=== PATIENT | female | born 1950 | race Caucasian/White ===

== ENCOUNTER 2024-08-07 07:29 | Observation (INO) ==
--- NOTE | 2024-08-07 07:49 | Emergency Department Note ---
Impression & Plan Stroke-like symptom, Carotid arterial disease ED Provider Note NAME: LATIA ASH AGE: 74 SEX: F : 1950 ARRIVES VIA: Walk-In INFORMANT: Patient, ED PROVIDER(S): Pedro Meyer DO CHIEF COMPLAINT: Strokelike symptoms HPI: The patient is a 74-year-old female who recently moved to our area from [place] who presented to the emergency department at the request of her retinal specialist. The patient had a dilated retinal exam this week. She was noted to have an area on her retina that could be consistent with an ischemic stroke. She was told to go to the emergency department for further workup. The patient did bring a list of orders that her eye doctor as requested. The patient denies having any chest pain or difficulty breathing. She denies any difficulty ambulating. She did not notice any specific eye symptoms. She has no history of stroke but does have a history of bicuspid aortic valve. ROS: See above HPI for pertinent positives & negatives. A total of 10 systems reviewed and were otherwise negative. PAST MEDICAL HISTORY: See Below PAST SURGICAL HISTORY: See Below FAMILY HISTORY: See Below SOCIAL HISTORY: See Below HOME MEDICATIONS: See Below ALLERGIES: See Below VITALS: See Below PHYSICAL EXAMINATION: GENERAL: Patient is awake alert in no acute distress patient is resting comfortably and showing no signs of anxiety EYES: The conjunctivae are clear. The pupils are round and reactive. EARS, NOSE, MOUTH AND THROAT: The nose is without any evidence of any deformity. NECK: The neck is nontender and supple. RESPIRATORY: Normal respiratory effort is noted there is no evidence of wheezing rhonchi or rales CARDIOVASCULAR: Regular rate and rhythm was noted to auscultation. Systolic murmur suggested. GASTROINTESTINAL: The abdomen is soft. Abdomen is nontender. MUSCULOSKELETAL/EXTREMITIES: There is no evidence of gross deformity full range of motion is noted in the hips and shoulders. SKIN: There is no obvious evidence of any rash. There are no petechiae, pallor or cyanosis noted. NEUROLOGIC: Patient is awake alert and oriented x3 MEDICAL DECISION MAKING: The patient is a 74-year-old female who presented to the emergency department for an evaluation of strokelike symptoms. The patient had no specific symptoms but had been evaluated by an board certified arts therapist recently. She was told that she had signs of a possible ischemic stroke on retinal exam. She was told to go to the emergency department for further evaluation. The patient does not have a family doctor locally. She recently moved to the area. The patient had the usual stroke workup done in the emergency department. She was found to have carotid artery disease on the right which I do feel likely explains the patient's findings on retinal exam. I discussed the patient's laboratory and radiographic studies with her. Given her findings I do feel that she would be a better candidate for inpatient evaluation. She may need to be started on antiplatelet medications. I will defer this to the hospitalist group. I discussed the patient's condition with the on-call [facility] hospitalist. They have agreed to evaluate the patient in the emergency department. Triage Nursing notes reviewed. Prior medical records reviewed Vital Signs: reviewed and remarkable for elevated blood pressure. Differential diagnosis: Conjunctivitis, trauma, corneal abrasion, hyphema, glaucoma, iritis, corneal ulcer, dendrite, CRAO, CRVO, vitreous detachment, retinal detachment, as well as other pathologies. ER treatment provided: See below Diagnostics interpreted by me: ECG: EKG was obtained. My interpretation is sinus bradycardia 59 bpm. There was no ectopy. There is no acute ST segment abnormalities noted. No previous tracings available. Cardiac Monitoring: An order was placed for continuous cardiac monitoring. The monitor shows a rate of 59 bpm with sinus bradycardia. Laboratory studies: As stated above and show below. Imaging studies: See below. Radiographic imaging was reviewed by myself Consultation(s): I discussed this case with Dr. Hernandez who is on-call for the [facility] hospitalist group Past Med/Surg History Problem List (Updated 08/07/24 @ 11:00 by Con Dobson PA-C) Diabetes Carotid artery stenosis Carotid arterial disease (Acute) Stroke-like symptom (Acute) Medical History (Updated 08/07/24 @ 11:00 by Con Dobson PA-C) Bicuspid aortic valve Social History Smoking Status: Never smoker Feels Safe at Home: Yes Allergies Allergies Allergy/AdvReac Type Severity Reaction Status Date / Time Sulfa (Sulfonamide Allergy Unknown Verified 08/07/24 10:08 Antibiotics) ibuprofen AdvReac Unknown Verified 08/07/24 10:08 Home Meds Home Medications Medication Instructions Recorded Confirmed aspirin 81 mg tablet,delayed 81 mg PO DAILY 08/07/24 08/07/24 release hydrochlorothiazide 12.5 mg capsule 12.5 mg PO DAILY 08/07/24 08/07/24 levothyroxine 137 mcg tablet 137 mcg PO DAILY 08/07/24 08/07/24 (Synthroid) losartan 100 mg tablet 100 mg PO DAILY 08/07/24 08/07/24 Results & Data (ED) Vital Signs Vital Signs - 24 hr 08/07/24 07:37 08/07/24 07:37 08/07/24 08:21 Temperature 36.9 C Temperature Source Oral Pulse Rate 67 64 Pulse Rate [Apical] Pulse Rate from SpO2 Sensor Pulse Rhythm Regular Pulse Strength Normal Respiratory Rate 18 Respiratory Effort / Characteristics Non-Labored Respiratory Depth Normal Respiratory Pattern Regular Blood Pressure 157/83 H Blood Pressure [Left Arm] Blood Pressure Mean 107 Blood Pressure Mean [Left Arm] Pulse Oximetry 97 Oxygen Delivery Method Room Air Room Air Sepsis Recent Fever Within 48 Hours No Sepsis New/Unexplained Change in Mental Status No Sepsis Action Taken by Nursing No Action Required 08/07/24 08:30 08/07/24 08:33 08/07/24 08:39 Temperature Temperature Source Pulse Rate 56 L 53 L Pulse Rate [Apical] Pulse Rate from SpO2 Sensor 56 L 53 L Pulse Rhythm Pulse Strength Respiratory Rate 16 13 Respiratory Effort / Characteristics Respiratory Depth Respiratory Pattern Blood Pressure 144/69 H Blood Pressure [Left Arm] Blood Pressure Mean 113 Blood Pressure Mean [Left Arm] Pulse Oximetry 95 94 Oxygen Delivery Method Room Air Sepsis Recent Fever Within 48 Hours Sepsis New/Unexplained Change in Mental Status Sepsis Action Taken by Nursing 08/07/24 08:45 08/07/24 08:57 08/07/24 09:00 Temperature Temperature Source Pulse Rate 55 L Pulse Rate [Apical] Pulse Rate from SpO2 Sensor 56 L Pulse Rhythm Pulse Strength Respiratory Rate 12 Respiratory Effort / Characteristics Respiratory Depth Respiratory Pattern Blood Pressure 160/79 H 160/73 H Blood Pressure [Left Arm] Blood Pressure Mean 136 128 Blood Pressure Mean [Left Arm] Pulse Oximetry 95 Oxygen Delivery Method Sepsis Recent Fever Within 48 Hours Sepsis New/Unexplained Change in Mental Status Sepsis Action Taken by Nursing 08/07/24 09:12 08/07/24 09:15 08/07/24 09:15 Temperature Temperature Source Pulse Rate 55 L 56 L Pulse Rate [Apical] Pulse Rate from SpO2 Sensor 55 L 54 L Pulse Rhythm Pulse Strength Respiratory Rate 13 21 Respiratory Effort / Characteristics Respiratory Depth Respiratory Pattern Blood Pressure 164/80 H Blood Pressure [Left Arm] Blood Pressure Mean 100 Blood Pressure Mean [Left Arm] Pulse Oximetry 93 97 Oxygen Delivery Method Sepsis Recent Fever Within 48 Hours Sepsis New/Unexplained Change in Mental Status Sepsis Action Taken by Nursing 08/07/24 09:30 08/07/24 09:42 08/07/24 09:45 Temperature Temperature Source Pulse Rate 49 L 51 L Pulse Rate [Apical] Pulse Rate from SpO2 Sensor 51 L 50 L Pulse Rhythm Pulse Strength Respiratory Rate 15 19 Respiratory Effort / Characteristics Respiratory Depth Respiratory Pattern Blood Pressure 166/81 H Blood Pressure [Left Arm] Blood Pressure Mean 136 Blood Pressure Mean [Left Arm] Pulse Oximetry 98 98 Oxygen Delivery Method Sepsis Recent Fever Within 48 Hours Sepsis New/Unexplained Change in Mental Status Sepsis Action Taken by Nursing 08/07/24 09:45 08/07/24 11:00 08/07/24 12:00 Temperature Temperature Source Pulse Rate Pulse Rate [Apical] 58 L 55 L Pulse Rate from SpO2 Sensor Pulse Rhythm Pulse Strength Respiratory Rate 18 18 Respiratory Effort / Characteristics Non-Labored Spontaneous Non-Labored Spontaneous Respiratory Depth Normal Normal Respiratory Pattern Regular Regular Blood Pressure 190/75 H Blood Pressure [Left Arm] 151/79 H 207/78 H Blood Pressure Mean 95 Blood Pressure Mean [Left Arm] 103 121 Pulse Oximetry 97 94 Oxygen Delivery Method Room Air Room Air Sepsis Recent Fever Within 48 Hours Sepsis New/Unexplained Change in Mental Status Sepsis Action Taken by Nursing 08/07/24 12:17 08/07/24 12:19 08/07/24 13:00 Temperature Temperature Source Pulse Rate 56 L Pulse Rate [Apical] 53 L 59 L Pulse Rate from SpO2 Sensor Pulse Rhythm Pulse Strength Respiratory Rate 16 18 Respiratory Effort / Characteristics Non-Labored Spontaneous Respiratory Depth Normal Respiratory Pattern Regular Blood Pressure Blood Pressure [Left Arm] 207/78 H 174/75 H Blood Pressure Mean Blood Pressure Mean [Left Arm] 121 108 Pulse Oximetry 98 96 Oxygen Delivery Method Room Air Room Air Sepsis Recent Fever Within 48 Hours Sepsis New/Unexplained Change in Mental Status Sepsis Action Taken by Retirement Medications Current Medication List: was personally reviewed by me Laboratory Data Attestation: I reviewed the patient's lab results. 08/07/24 07:51 08/07/24 07:51 Lab Results 08/07/24 08/07/24 Range/Units 07:51 10:10 WBC 5.71 (4.8-10.8) K/ul RBC 4.63 (4.20-5.40) M/uL Hgb 13.5 (12.0-16.0) g/dl Hct 41.0 (37.0-47.0) % MCV 88.6 (80.0-100.0) fL MCH 29.2 (25.0-34.0) pg MCHC 32.9 (32.0-36.0) g/dL RDW Std Deviation 42.1 (36.4-46.3) fL RDW Coeff of [place] 13.0 (11.5-14.5) % Plt Count 216 (130-400) K/uL MPV 11.5 (9.4-12.4) fL Immature Gran % (Auto) 0.4 % Neut % (Auto) 71.4 % Lymph % (Auto) 19.8 % [place] % (Auto) 6.0 % Eos % (Auto) 1.9 % Baso % (Auto) 0.5 % Neut # (Auto) 4.08 (1.40-6.50) K/uL Lymph # (Auto) 1.13 L (1.20-3.40) K/uL [place] # (Auto) 0.34 (0.11-0.59) K/uL Eos # (Auto) 0.11 (0.00-0.50) K/uL Baso # (Auto) 0.03 (0.00-0.20) K/uL Immature Gran # (Auto) 0.02 (0.01-0.20) K/uL ESR 27 (0-30) mm/hr PT 10.4 (9.0-12.0) Seconds INR 1.0 (0.9-1.1) APTT 26 (21-31) Seconds PTT Ratio 1.0 Sodium 141 (136-145) mmol/L Potassium 3.8 (3.5-5.1) mmol/L Chloride 106 (98-107) mmol/L Carbon Dioxide 26 (21-32) mmol/L Anion Gap 9 (3-11) BUN 16 (6-23) mg/dl Creatinine 0.60 (0.6-1.2) mg/dl Est Cr Clr Drug Dosing 98.2 ml/min eGFR 94.72 BUN/Creatinine Ratio 26.7 H (10-20) Glucose 131 H (70-99(Fasting)) mg/dl Calcium 9.3 (8.6-10.3) mg/dl Magnesium 1.8 (1.7-2.4) mg/dl Total Bilirubin 0.5 (0.2-1.0) mg/dl AST 15 (13-39) U/L ALT 14 (7-52) U/L Alkaline Phosphatase 93 (34-104) U/L Troponin I High Sens 4.3 (0-14) pg/ml C-Reactive Protein < 0.50 (0-0.5) mg/dl Total Protein 6.9 (6.0-8.3) gm/dl Albumin 3.9 (3.4-5.0) gm/dl Globulin 3.0 (2.5-4.0) gm/dl Albumin/Globulin Ratio 1.3 (0.9-2) Urine Color Yellow Urine Appearance Clear (Clear) Urine pH 7.0 (4.5-7.5) Ur Specific [place] 1.043 H (1.000-1.030) Urine Protein Negative (Negative) Urine Glucose (UA) Negative (Negative) Urine Ketones Negative (Negative) Urine Blood Negative (Negative) Urine Nitrite Positive A (Negative) Urine Bilirubin Negative (Negative) Urine Urobilinogen Negative (Negative) Ur Leukocyte Esterase 1+ H (Negative) Urine WBC (Auto) 11-20 H (0-5) /hpf Urine RBC (Auto) 3-5 H (0-2) /hpf U Hyaline Cast (Auto) 0-2 (0-2) /lpf U Epithel Cells (Auto) 0-2 (0-2) /hpf Urine Bacteria (Auto) 4+ H (None Seen) Administered Medications Discontinued Medications Amlodipine Besylate (Amlodipine Besylate 5 Mg Tab) 5 mg PO NOW ONE Stop: 08/07/24 11:23 Last Admin: 08/07/24 12:19 Dose: 5 mg Documented By: AUGIE Atorvastatin Calcium (Atorvastatin 40 Mg Tab) 40 mg PO NOW STA Stop: 08/07/24 11:19 Last Admin: 08/07/24 12:25 Dose: Not Given Documented By: EVE Clopidogrel Bisulfate (Clopidogrel Bisulfate 300 Mg Tab) 300 mg PO NOW STA Stop: 08/07/24 11:28 Last Admin: 08/07/24 12:19 Dose: 300 mg Documented By: KEH Ioversol (Optiray 320 125ml) 120 ml IV ONCE ONE Stop: 08/07/24 08:02 Last Admin: 08/07/24 08:02 Dose: 120 ml Documented By: AYDE Imaging Data Attestation: I personally reviewed and interpreted this imaging study as follows: My Impression: 1 view chest x-ray was obtained emergency department. My interpretation is no free air or definite infiltrate, final report below. CT the brain was obtained in the emergency department. My interpretation is no intracranial hemorrhage or mass effect, final report below Radiologist's Impression: Chest X-Ray 08/07/24 07:46 EXAM: XR chest 1V portable CLINICAL HISTORY: Neuro deficit, acute stroke suspected TECHNIQUE: An X-ray image of the chest is obtained in AP projection. COMPARISON: No prior studies are available for comparison. FINDINGS: Pulmonary Parenchyma: Bilateral accentuated interstitial lung markings suggest chronic lung changes. No evidence of consolidation, collapse, or focal opacities. No pulmonary nodules are identified. No evidence of pleural effusion or pleural thickening. Heart and Mediastinum: Heart size and shape are normal. No mediastinal widening or masses. No hilar or mediastinal lymphadenopathy. Bony Thorax: Bony thorax appears intact without fractures or deformities. Soft Tissues: Soft tissues overlying the chest wall are unremarkable. IMPRESSION: 1. Bilateral increase interstitial lung markings with right middle lung zone atlectatic band suggesting chronic lung changes. 2. No acute cardiopulmonary abnormalities are identified. Electronically signed by Kori Abdi 08-07-2024 08:[address] 08/07/24 07:46 CT OF THE HEAD WITHOUT CONTRAST CLINICAL HISTORY: neuro deficit, acute stroke suspected COMPARISON STUDY: No previous studies for comparison. TECHNIQUE: Helical axial images of the head were obtained without IV contrast. Automated exposure control was utilized for the study. A dose lowering technique was utilized adhering to the principles of ALARA. FINDINGS: No acute intracranial hemorrhage, midline shift or mass effect is present. The ventricular system is unremarkable. The basal cisterns are patent. No extra-axial collections are present. There are no findings to suggest acute dural sinus thrombosis or acute territorial infarct. No significant calvarial abnormalities are present. Visualized portions of the sinuses and mastoid air cells are clear. Postoperative findings within the left globe are present. IMPRESSION: No acute intracranial findings. ACT 112: Negative or not required by law. Electronically signed by: Stiven Oliver M.D. 08/07/2024 8:13 AM Head CTA 08/07/24 07:46 CTA ANGIOGRAPHY OF THE HEAD CLINICAL HISTORY: neuro deficit, acute stroke suspected COMPARISON STUDY: No previous studies for comparison. TECHNIQUE: Helical axial images of the head were obtained following uneventful intravenous administration of 120 cc of Optiray. Sagittal and coronal reconstructions were viewed as well as maximal intensity projections on an independent 3-D workstation. Automated exposure control was utilized for the study. A dose lowering technique was utilized adhering to the principles of ALARA. FINDINGS: Please note that the head CT will be reported separately. 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 The bilateral M1, M2, A1 and A2 segments are patent. There is no intracranial aneurysm. There is moderate calcified plaque within bilateral cavernous carotids without severe stenosis. persistence of the right posterior cerebral artery is noted. Posterior circulation is intact. Right vertebral artery is dominant. IMPRESSION: No large vessel occlusion. No intracranial aneurysm. ACT 112: Negative or not required by law. Electronically signed by: Stiven Oliver M.D. 08/07/2024 8:24 AM Neck CTA 08/07/24 07:46 CT ANGIOGRAPHY OF THE NECK WITH CONTRAST CLINICAL HISTORY: neuro deficit, acute stroke suspected COMPARISON STUDY: No previous studies for comparison. Technique: CT angiography of the carotid and vertebral arteries was obtained using Optiray and 3D reconstruction on an independent workstation. NASCET criteria was utilized. Automated exposure control was utilized for the study. A dose lowering technique was utilized adhering to the principles of ALARA. CT DOSE: 995.91 mGy.cm Findings: Visualized portions of the lung apices are unremarkable. There is no cervical lymphadenopathy. There are no cervical spine fractures. The right vertebral artery is dominant and patent. There is moderate stenosis at the origin of the left vertebral artery. There is moderate plaque within the left subclavian artery without stenosis. There is extensive calcified and noncalcified plaque within the proximal right internal carotid artery which results in severe stenosis at the origin of the right internal carotid artery. Vessel measures 1.3 mm at site of narrowing and 5 mm distally. There is mild plaque within the left carotid bifurcation without stenosis. IMPRESSION: 1. Severe (80%) stenosis of the proximal right internal carotid artery due to extensive calcified and noncalcified atherosclerotic plaque. 2. No stenosis within the cervical left internal carotid artery. 3. Dominant, patent right vertebral artery. Moderate stenosis at the origin of the left vertebral artery. ACT 112: Negative or not required by law. Electronically signed by: Stiven Oliver M.D. 08/07/2024 8:19 AM Brain MRI 08/07/24 10:01 MRI OF THE BRAIN WITHOUT CONTRAST CLINICAL HISTORY: Abnormal right eye exam. Evaluate for stroke. COMPARISON STUDY: Head CT and CTA of the head performed earlier today. TECHNIQUE: Utilizing a 1.5 Mitra magnet and dedicated coil, multiplanar, multiecho imaging of the brain was performed without IV contrast. FINDINGS: There are no foci of restricted diffusion to suggest acute infarct. No acute intracranial hemorrhage, midline shift or mass effect is present. Ventricular system is unremarkable. Basal cisterns are patent. Flow-voids for the major intracranial vessels are present. No intracranial masses identified on unenhanced exam. Multiple white matter T2 hyperintense foci suggest small vessel disease. There are no calvarial lesions. There is no evidence for sinusitis. There is no mastoid fluid. IMPRESSION: 1. No acute intracranial findings. No evidence for acute infarct. 2. White matter T2 hyperintense foci suggestive of moderate small vessel disease. ACT 112: Negative or not required by law. Electronically signed by: Stiven Oliver M.D. 08/07/2024 12:05 PM Discharge Plan Visit Data Chief Complaint: Stroke/CVA Symptoms Stated Complaint: ABNORMAL EYE SYMP, REF BY DOC FOR STROKE ED Provider: Pedro Meyer Discharge Problem: Stroke-like symptom, Carotid arterial disease Patient Disposition: Being Evaluated by Hospitalist Forms Stand Alone Forms: My [facility] [employer] Prescriptions Prescriptions: No Action levothyroxine [Synthroid] 137 mcg tablet 137 mcg PO DAILY hydrochlorothiazide 12.5 mg capsule 12.5 mg PO DAILY losartan 100 mg tablet 100 mg PO DAILY aspirin [Aspir-81] 81 mg Tablet,Delayed Release (Dr/Ec) 81 mg PO DAILY Referrals Referrals: PCP,NO [Primary Care Provider] - Discharge Problem: Carotid arterial disease Qualifiers: Carotid artery disease type: unspecified Laterality: right Qualified Code(s): I 77.9 - Disorder of arteries and arterioles, unspecified
[2024-08-07] MEDS: OPTIRAY 320 125ml IV ONE (08:02)
[2024-08-07 08:11] LABS: Basophils # (auto) 0.03 K/uL (0.00-0.20); Basophils % (auto) 0.5 %; Eosinophils # (auto) 0.11 K/uL (0.00-0.50); Eosinophils % (auto) 1.9 %; Hemoglobin 13.5 g/dl (12.0-16.0); Immature Granulocytes # (auto) 0.02 K/uL (0.01-0.20); Immature Granulocytes % (auto) 0.4 %; Lymphocytes # (auto) 1.13 K/uL (1.20-3.40); Lymphocytes % (auto) 19.8 %; Mean Corpuscular Hemoglobin 29.2 pg (25.0-34.0); Mean Corpuscular Hgb Conc 32.9 g/dL (32.0-36.0); Mean Corpuscular Volume 88.6 fL (80.0-100.0); Mean Platelet Volume 11.5 fL (9.4-12.4); Monocytes # (auto) 0.34 K/uL (0.11-0.59); Neutrophils # (auto) 4.08 K/uL (1.40-6.50); Neutrophils % (auto) 71.4 %; Platelet Count 216 K/uL (130-400); RDW Standard Deviation 42.1 fL (36.4-46.3); Red Blood Count 4.63 M/uL (4.20-5.40); White Blood Count 5.71 K/ul (4.8-10.8)
--- NOTE | 2024-08-07 08:14 | CT Scan Report ---
CT OF THE HEAD WITHOUT CONTRAST CLINICAL HISTORY: neuro deficit, acute stroke suspected COMPARISON STUDY: No previous studies for comparison. TECHNIQUE: Helical axial images of the head were obtained without IV contrast. Automated exposure con trol was utilized for the study. A dose lowering technique was utilized adhering to the principles o f ALARA. FINDINGS: No acute intracranial hemorrhage, midline shift or mass effect is present. The ventricular system is unremarkable. The basal cisterns are patent. No extra-axial collections are present. There are no findings to suggest acute dural sinus thrombosis or acute territorial infarct. No significant calvarial abnormalities are present. Visualized portions of the sinuses and mastoid air cells are chao ar. Postoperative findings within the left globe are present. IMPRESSION: No acute intracranial findings. ACT 112: Negative or not required by law. Electronically signed by: Stiven Oliver M.D. 08/07/2024 8:13 AM
--- NOTE | 2024-08-07 08:21 | CT Scan Report ---
CT ANGIOGRAPHY OF THE NECK WITH CONTRAST CLINICAL HISTORY: neuro deficit, acute stroke suspected COMPARISON STUDY: No previous studies for comparison. Technique: CT angiography of the carotid and vertebral arteries was obtained using Optiray and 3D rec onstruction on an independent workstation. NASCET criteria was utilized. Automated exposure control was utilized for the study. A dose lowering technique was utilized adhering to the principles of ALA RA. CT DOSE: 995.91 mGy.cm Findings: Visualized portions of the lung apices are unremarkable. There is no cervical lymphadenopat hy. There are no cervical spine fractures. The right vertebral artery is dominant and patent. There i s moderate stenosis at the origin of the left vertebral artery. There is moderate plaque within the l eft subclavian artery without stenosis. There is extensive calcified and noncalcified plaque within t he proximal right internal carotid artery which results in severe stenosis at the origin of the right internal carotid artery. Vessel measures 1.3 mm at site of narrowing and 5 mm distally. There is mil d plaque within the left carotid bifurcation without stenosis. IMPRESSION: 1. Severe (80%) stenosis of the proximal right internal carotid artery due to extensive calcified and noncalcified atherosclerotic plaque. 2. No stenosis within the cervical left internal carotid artery. 3. Dominant, patent right vertebral artery. Moderate stenosis at the origin of the left vertebral art ejlly. ACT 112: Negative or not required by law. Electronically signed by: Stiven Oliver M.D. 08/07/2024 8:19 AM
--- NOTE | 2024-08-07 08:26 | CT Scan Report ---
CTA ANGIOGRAPHY OF THE HEAD CLINICAL HISTORY: neuro deficit, acute stroke suspected COMPARISON STUDY: No previous studies for comparison. TECHNIQUE: Helical axial images of the head were obtained following uneventful intravenous administr ation of 120 cc of Optiray. Sagittal and coronal reconstructions were viewed as well as maximal inten sity projections on an independent 3-D workstation. Automated exposure control was utilized for the study. A dose lowering technique was utilized adhering to the principles of ALARA. FINDINGS: Please note that the head CT will be reported separately. 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 The bilateral M1, M2, A1 and A2 segments are patent. There is no intracranial an eurysm. There is moderate calcified plaque within bilateral cavernous carotids without severe stenosi s. persistence of the right posterior cerebral artery is noted. Posterior circulation is intact . Right vertebral artery is dominant. IMPRESSION: No large vessel occlusion. No intracranial aneurysm. ACT 112: Negative or not required by law. Electronically signed by: Stiven Oliver M.D. 08/07/2024 8:24 AM
--- NOTE | 2024-08-07 08:37 | XRay Report ---
EXAM: XR chest 1V portable CLINICAL HISTORY: Neuro deficit, acute stroke suspected TECHNIQUE: An X-ray image of the chest is obtained in AP projection. COMPARISON: No prior studies are available for comparison. FINDINGS: Pulmonary Parenchyma: Bilateral accentuated interstitial lung markings suggest chronic lung changes. No evidence of consolidation, collapse, or focal opacities. No pulmonary nodules are identified. No evidence of pleural effusion or pleural thickening. Heart and Mediastinum: Heart size and shape are normal. No mediastinal widening or masses. No hilar or mediastinal lymphadenopathy. Bony Thorax: Bony thorax appears intact without fractures or deformities. Soft Tissues: Soft tissues overlying the chest wall are unremarkable. IMPRESSION: 1. Bilateral increase interstitial lung markings with right middle lung zone atlectatic band suggesting chronic lung changes. 2. No acute cardiopulmonary abnormalities are identified. Electronically signed by Kori Abdi 08-07-2024 08:37 AM
[2024-08-07 08:40] LABS: Alanine Aminotransferase 14 U/L (7-52); Albumin Globulin Ratio 1.3 (0.9-2); Albumin Level 3.9 gm/dl (3.4-5.0); Alkaline Phosphatase 93 U/L (34-104); Anion Gap 9 (3-11); Aspartate Aminotransferase 15 U/L (13-39); BUN Creatinine Ratio 26.7 (10-20); Bilirubin,Total 0.5 mg/dl (0.2-1.0); Blood Urea Nitrogen 16 mg/dl (6-23); C Reactive Protein < 0.50 mg/dl (0-0.5); Calcium 9.3 mg/dl (8.6-10.3); Carbon Dioxide 26 mmol/L (21-32); Chloride 106 mmol/L (98-107); Creatinine Clr Calc Pharmacy 98.2 ml/min; Glucose 131 mg/dl (70-99(Fasting)); Magnesium 1.8 mg/dl (1.7-2.4); Potassium 3.8 mmol/L (3.5-5.1); Sodium 141 mmol/L (136-145); Total Protein 6.9 gm/dl (6.0-8.3)
[2024-08-07 08:41] LABS: Partial Thromboplastin Time 26 Seconds (21-31); Prothrombin Time 10.4 Seconds (9.0-12.0)
[2024-08-07 08:45] LABS: Troponin I High Sensitivity 4.3 pg/ml (0-14)
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
[2024-08-07] MEDS ORDERED: PHARMACIST DISCHARGE MED REC CONSULT PRN (09:56)
[2024-08-07 10:41] LABS: Appearance Urine Clear (Clear); Bacteria Urine Automated 4+ (None Seen); Bilirubin Urine Negative (Negative); Blood Urine Negative (Negative); Cast Urine Automated 0-2 /lpf (0-2); Color Urine Yellow; Epithelial Cell Urine Auto 0-2 /hpf (0-2); Glucose Urine UA Negative (Negative); Ketones Urine Negative (Negative); Leukocyte Esterase Urine 1+ (Negative); Nitrite Urine Positive (Negative); Protein Urine Negative (Negative); Specific Gravity Urine 1.043 (1.000-1.030); Urobilinogen Urine Negative (Negative)
--- NOTE | 2024-08-07 12:08 | Magnetic Resonance Report ---
MRI OF THE BRAIN WITHOUT CONTRAST CLINICAL HISTORY: Abnormal right eye exam. Evaluate for stroke. COMPARISON STUDY: Head CT and CTA of the head performed earlier today. TECHNIQUE: Utilizing a 1.5 Mitra magnet and dedicated coil, multiplanar, multiecho imaging of the bra in was performed without IV contrast. FINDINGS: There are no foci of restricted diffusion to suggest acute infarct. No acute intracranial h emorrhage, midline shift or mass effect is present. Ventricular system is unremarkable. Basal cistern s are patent. Flow-voids for the major intracranial vessels are present. No intracranial masses ident ified on unenhanced exam. Multiple white matter T2 hyperintense foci suggest small vessel disease. Th ere are no calvarial lesions. There is no evidence for sinusitis. There is no mastoid fluid. IMPRESSION: 1. No acute intracranial findings. No evidence for acute infarct. 2. White matter T2 hyperintense foci suggestive of moderate small vessel disease. ACT 112: Negative or not required by law. Electronically signed by: Stiven Oliver M.D. 08/07/2024 12:05 PM
[2024-08-07] MEDS: CLOPIDOGREL BISULFATE 300 MG TAB PO STA (12:19)
[2024-08-07] MEDS: amLODIPine BESYLATE 5 MG TAB PO ONE (12:19)
[2024-08-07] MEDS: ATORVASTATIN 40 MG TAB PO STA (12:25)
[2024-08-07 13:32] VITALS: RESP 18
[2024-08-07] MEDS ORDERED: hydrALAZINE 10 MG TAB PO PRN (17:09)
[2024-08-07] MEDS ORDERED: ACETAMINOPHEN 325 MG TAB PO PRN (17:09)
[2024-08-07] MEDS ORDERED: ONDANSETRON INJ 2 MG/ML 2 ML VIAL IV PRN (17:09)
[2024-08-07] MEDS ORDERED: CARBOHYDRATES FOR HYPOGLYCEMIA PO PRN (17:09)
[2024-08-07] MEDS ORDERED: DEXTROSE 50% 50 ML SYRINGE IV PRN (17:09)
[2024-08-07] MEDS ORDERED: GLUCOSE 40% GEL 15 GM TUBE PO PRN (17:09)
[2024-08-07] MEDS ORDERED: GLUCOSE 10 TAB/TUBE PO PRN (17:09)
[2024-08-07] MEDS ORDERED: GLUCAGON FOR INJ 1 MG VIAL SQ PRN (17:09)
--- NOTE | 2024-08-07 17:35 | XCELERA ---
[id number] \\[id number]
[2024-08-08 02:31] VITALS: TEMP 97.5
[2024-08-08 06:21] LABS: Basophils # (auto) 0.04 K/uL (0.00-0.20); Basophils % (auto) 0.7 %; Eosinophils # (auto) 0.17 K/uL (0.00-0.50); Eosinophils % (auto) 2.9 %; Hematocrit (blood only) 39.6 % (37.0-47.0); Hemoglobin 13.2 g/dl (12.0-16.0); Immature Granulocytes # (auto) 0.02 K/uL (0.01-0.20); Immature Granulocytes % (auto) 0.3 %; Lymphocytes % (auto) 23.5 %; Mean Corpuscular Hemoglobin 29.7 pg (25.0-34.0); Mean Corpuscular Hgb Conc 33.3 g/dL (32.0-36.0); Mean Platelet Volume 11.8 fL (9.4-12.4); Monocytes # (auto) 0.51 K/uL (0.11-0.59); Monocytes % (auto) 8.6 %; Neutrophils # (auto) 3.81 K/uL (1.40-6.50); Platelet Count 198 K/uL (130-400); RDW Coefficient of Variation 12.7 % (11.5-14.5); RDW Standard Deviation 41.5 fL (36.4-46.3); Red Blood Count 4.45 M/uL (4.20-5.40); White Blood Count 5.95 K/ul (4.8-10.8)
[2024-08-08] MEDS: LEVOTHYROXINE SODIUM 137 MCG TABLET PO SCH (06:47)
[2024-08-08 06:51] LABS: BUN Creatinine Ratio 23.7 (10-20); Calcium 8.9 mg/dl (8.6-10.3); Chol HDL Ratio 4.1 (0-5); Creatinine Clr Calc Pharmacy 98.1 ml/min; Potassium 3.9 mmol/L (3.5-5.1)
[2024-08-08 07:47] VITALS: BP 155/72; O2SAT 94
[2024-08-08] MEDS: CLOPIDOGREL BISULFATE 75 MG TAB PO SCH (09:58)
[2024-08-08] MEDS: ATORVASTATIN 40 MG TAB PO SCH (09:58)
[2024-08-08] MEDS: ASPIRIN 81 MG ECTAB PO SCH (09:58)
[2024-08-08] MEDS: LOSARTAN POTASSIUM 50 MG TAB PO SCH (09:59)
[2024-08-08] MEDS: hydroCHLOROthiazide 25 MG TAB PO SCH (10:01)
[2024-08-08] MEDS ORDERED: STROKE PATIENT DISCHARGE STA (10:35)
--- NOTE | 2024-08-08 10:37 | Consultation ---
Date of Consultation August 08, 2024 Assessment & Plan (1) Carotid artery stenosis: Due to the 90% stenosis we recommended an intervention on her carotid artery. We went over the risks options benefits of endarterectomy versus TCAR. She elected to go ahead with a TCAR approach. She can be discharged today and we will arrange for her surgical intervention. She needs to be on DAPT and a statin for the TCAR procedure. Thank you very much for letting us participate in the care of this patient. History of Present Illness Reason for Consultation: Right internal carotid artery stenosis Attending Physician: Oswald Garrido MD History of Present Illness This is a 74-year-old female who has known carotid disease. She was seen by retina specialist ischemic area in her retina. CT angiogram was done after she was sent to the emergency room. This showed a appears to be greater than 90% narrowing of her right internal carotid artery she denies any symptoms history of vascular insufficiency. She denies any TIAs cerebrovascular accidents, or amaurosis fugax. She denies any claudication. She was seen by cardiology in the past was told she has a bicuspid valve and a murmur. Allergies Allergy/AdvReac Type Severity Reaction Status Date / Time ibuprofen Allergy Mild HIVES Unverified 08/08/24 06:41 Sulfa (Sulfonamide Allergy Unknown Verified 08/08/24 06:41 Antibiotics) N Allergy Unknown Uncoded 08/08/24 06:41 SULFA Allergy Unknown Uncoded 08/08/24 06:41 Home Medications Medication Instructions Recorded Confirmed Type Calcium (Caltrate) 600 mg PO BID ##0 07/23/07 History Fish Oil ([place]-3) 4 cap PO QD ##0 07/23/07 History Levothyroxine (Levothroid) 0.125 mg PO DAILY ##0 07/23/07 History Zolpidem Tartrate (Ambien Cr *) 12.5 mg PO HS ##0 07/23/07 History Clobetasol Cream 0.05 % QD ##1 09/04/10 History Furosemide (Lasix) 40 mg PO QD ##0 09/04/10 History Metopropolol 1 PO QD ##0 09/04/10 History Multivitamin 1 tab PO DAILY ##1 09/04/10 History Potassim Chloride 1 PO QD ##0 09/04/10 History Pristiq 50 mg PO QD ##1 09/04/10 History Vitmain D-3 1,000 PO QD ##1 09/04/10 History lisinopril 10 mg PO QD ##1 09/04/10 History Tamoxifen (Nolvadex) 20 mg PO DAILY ##0 10/25/10 History Cyanocobalamin (Vitamin B-12) 1,000 mcg PO DAILY ##0 04/24/11 History Metformin HCL (Glucophage *) 1,000 mg PO BID ##0 04/24/11 History TRILIPIX 12.5 mg PO DAILY ##0 04/24/11 History aspirin 81 mg tablet,delayed 81 mg PO DAILY 08/07/24 08/07/24 History release hydrochlorothiazide 12.5 mg capsule 12.5 mg PO DAILY 08/07/24 08/07/24 History levothyroxine 137 mcg tablet 137 mcg PO DAILY 08/07/24 08/07/24 History (Synthroid) losartan 100 mg tablet 100 mg PO DAILY 08/07/24 08/07/24 History atorvastatin 40 mg tablet 40 mg PO QAM #30 tabs 08/08/24 Rx clopidogrel 75 mg tablet 75 mg PO QAM #30 tabs 08/08/24 Rx Patient History Medical History Bicuspid aortic valve Social History Smoking Status: Never smoker Second Hand Exposure: No; Do You Dip or Chew Tobacco: No; Tobacco Cessation Education Requested by Patient: No Hx Alcohol Use: No Hx Substance Use: No Preferred Language: Liberian Communication Ability: Effective Human Resources Advisor Required: No Beliefs That Will Affect Care: None Current Living Situation: Spouse Other Information That Helps Us Care for You: No Feels Safe at Home: Yes Safety Concerns: Feels Safe At This Time Assistive Devices: CPAP Assistive Devices Comment: CPAP at night Review of Systems Review of Systems: All systems reviewed & are unremarkable except as noted in HPI & below Physical Exam Constitutional: WD/WN, vitals as above Neck: trachea midline Respiratory: normal respiratory effort, lungs clear to auscultation Cardiovascular: Rate/Rhythm: regular rate and regular rhythm Vessels: + carotid bruit (right) Extremities: normal capillary refill Gastrointestinal (Abdomen): Inspection/Auscultation: abdomen normal to inspection; abdomen not distended Percussion/Palpation: abdomen soft; abdomen nontender Neurologic: CN's II-XI intact bilaterally, normal sensation to monofilament and moves all extremities Psychiatric: A+Ox3, euthymic affect Results & Data Vital Signs (Past 12 Hours) Vital Signs Temp Pulse Pulse Resp BP Pulse Ox O2 Del Method 08/08/24 07:55 62 08/08/24 07:46 36.4 C L 54 L 18 155/72 H 94 Room Air 08/08/24 02:30 36.4 C L 59 L 18 158/76 H 95 Room Air 08/07/24 22:32 36.6 C 62 18 150/75 H 97 Room Air
--- NOTE | 2024-08-08 10:38 | Discharge Summary ---
Discharge Summary Date of Service August 08, 2024 Principal Dx & Hospital Course #1 = Principal Diagnosis (1) Stroke-like symptom: (2) Carotid artery stenosis: (3) Diabetes: Donna Zaman is a pleasant 74-year-old female with PMH of CAD, lymphedema, and HTN. She presented on 08/07 at the behest of her retinal specialist. She was seen by a retinal specialist and had a dilated retinal scan on 08/05, and was told there was concern for ischemic stroke in her right eye. Patient recently moved back to [place] from [place] for her grandchildren; she believes she has 13 or 15 grandchildren at home). No prior history of strokes or TIAs. No family history of strokes or TIAs to her knowledge. She does have a history of cardiac issues; heart murmur and bicuspid valve for which she has an annual echocardiogram. She also notes that she has carotid artery stenosis which is being monitored. No prior history of A-fib, OH, CHF, or heart stents. Her last echocardiogram was around a year ago. Patient is currently asymptomatic at this time. She denies any strokelike symptoms like slurred speech, facial droop, unilateral deficits, word finding difficulty, dizziness, or confusion. #Concern for ischemic stroke Head CT revealed no acute intracranial findings Brain MRI negative Echocardiogram with bubble study ordered, pending Patient is currently asymptomatic, and if there was an event, it appears to have been >48h ago No need for permissive HTN Hydralazine 5mg IV q8h spa consultant for SBP >180 or DBP > 120 PT/OT evaluations appreciated Continue aspirin 81 mg daily If pursuing CEA, continue monotherapy If pursuing stent, will upgrade to DAPT with plavix Start atorvastatin 40 mg p.o. daily AM CBC, BMP, A1c, fasting lipid panel #Carotid stenosis Neck CTA revealed severe (80%) stenosis of the proximal right internal carotid artery due to extensive calcified and noncalcified atherosclerotic plaque Vascular surgery consult appreciated Will plan to see patient on Tuesday 08/08 Vascular recommending asa, plavix, statin, out patient follow up in office. #T2DM Last A1c at 5.6%, per patient Not currently on medication; diet controlled T2DM diet BSG ACHS Adjust regimen as needed #Bilateral lower extremity edema/lymphedema Continue HCTZ #Asymptomatic bacteriuria UA positive for 4+ bacteria No leukocytosis; afebrile Clinically, patient denies chills, suprapubic tenderness, or burning with urination Will defer antibiotics at this time Disposition: Obs - admit to PCU telemetry Full code T2DM diet VTE PPx: Teds Admission HPI Per Admitting Provider Junie is a pleasant 74-year-old female with PMH of CAD, lymphedema, and HTN. She presented on 08/07 at the behest of her retinal specialist. She was seen by a retinal specialist and had a dilated retinal scan on 08/05, and was told there was concern for ischemic stroke in her right eye. Patient recently moved back to [place] from [place] for her grandchildren; she believes she has 13 or 15 grandchildren at home). No prior history of strokes or TIAs. No family history of strokes or TIAs to her knowledge. She does have a history of cardiac issues; heart murmur and bicuspid valve for which she has an annual echocardiogram. She also notes that she has carotid artery stenosis which is being monitored. No prior history of A-fib, OH, CHF, or heart stents. Her last echocardiogram was around a year ago. Patient is currently asymptomatic at this time. Patient reports that she wears glasses at baseline; does not wear contact lenses. She denies any strokelike symptoms like slurred speech, facial droop, unilateral deficits, word finding difficulty, dizziness, or confusion. She does have a history of diabetes, but is not currently on any diabetic medications; patient reports her last A1c was around 5.6%; diet controlled after she switched from an animal to plant-based diet. She reports she has had an MRI in the past; in terms of metal, she does report she has clips in her left breast, as well as in her left eye from retinal surgery. No sick contacts to her knowledge. Patient denies smoking, tobacco use, or recent alcohol use. She reports she took her regular morning medicine today. She takes aspirin 81 mg daily for primary prevention. No prior history of DVT/PE. While she does endorse lower extremity edema bilaterally, she denies any recent injuries or erythema to her lower extremities. Patient is hypertensive at 144/69 and mildly bradycardic at 56 bpm at time of admission; vitals otherwise stable. ED course: ROS: Patient endorses headache (attributes to not drinking enough water at home), and ongoing dry cough. Patient denies fever, chills, night-sweats, dizziness, lightheadedness when standing, changes in vision, photophobia, neck pain/stiffness, rashes, tick bites, chest pain, chest palpitations, pleuritic CP, SOB, abdominal pain, N/V/D, changes in urinary bowel habits, burning with urination, or numbness tingling in the arms or legs. Discharge Exam GENERAL APPEARANCE NAD, activity normal for age, well developed/ well nourished, no cyanosis, pallor, or diaphoresis. EYES lids/conjunctiva normal. EARS/NOSE/THROAT Mucous membranes moist, nares normal, lips/teeth normal uvula midline without oral pharyngeal erythema, exudate or swelling TMs normal bilaterally. No lymphangitis/lymphedema. HEAD/NECK normocephalic atraumatic, no facial trauma, neck is supple. RESPIRATORY respiratory effort normal, speaks in full sentences, no tripod position, no accessory muscle use. Lungs clear to auscultation without rhonchi, wheezes, rales CARDIAC Regular rate and rhythm, no edema. ABDOMINAL Soft, ND/NT. No evidence of fluid wave. No pulsatile masses on exam, rebound tenderness, Vuong sign or pain over Mcburney's point. MUSCLES/EXTREMITIES No abnormal range of motion, no swelling. SKIN Warm, pink and dry. No rashes, dermatoses, petechiae or lesions. NEUROLOGICAL Speech is clear and appropriate. Normal level of consciousness. Gait and coordination are normal. 5/5 strength in all extremities. PSYCH Normal mood and affect. Judgement/competence is appropriate Discharge Plan Discharge Items Patient Disposition: Home - Self-Care Reason For Visit: STROKE WORKUP, CAROTID STENOSIS Discharge Diagnosis: carotid stenosis Activity: Resume your previous activity Non-emergency contact: Primary Care Provider Call non-emergency contact if: you have any medication questions Follow-up/Referrals: Rashid Fisher MD [Physician] - PCP,NO [Primary Care Provider] - Diet: Regular Addtl Attending Provider Instructions: Follow up with Vascular surgery for out patient follow up carotid stenosis Addtl Vp Human Resources Provider Instructions: Start your statin, plavix, and low dose aspirin no later than August 20 Call my office with your pharmacy so we can send the scripts there. Office number is [phone] Pending Studies at Discharge: No Stand-Alone Forms: My [facility] Social Yuppies, Smoking Cessation Medications and DC Order Prescriptions: New atorvastatin 40 mg Tablet 40 mg PO QAM Qty: 30 0RF clopidogrel 75 mg Tablet 75 mg PO QAM Qty: 30 0RF Continued Calcium (Caltrate) 600 MG tablet 600 mg PO BID Qty: 0 Fish Oil ([place]-3) 1 EA capsule 4 cap PO QD Qty: 0 Levothyroxine (Levothroid) 0.125 MG tablet 0.125 mg PO DAILY Qty: 0 Zolpidem Tartrate (Ambien Cr *) 12.5 MG tablet 12.5 mg PO HS Qty: 0 Patient Comments: PRN SLEEP Metopropolol 25 mg 1 PO QD Qty: 0 Potassim Chloride 20 mEq 1 PO QD Qty: 0 Pristiq 50 mg PO QD Qty: 1 lisinopril 10 mg PO QD Qty: 1 Furosemide (Lasix) 40 MG tablet 40 mg PO QD Qty: 0 Multivitamin tablet 1 tab PO DAILY Qty: 1 Vitmain D-3 1,000 PO QD Qty: 1 Clobetasol Cream 0.05 % QD Qty: 1 Tamoxifen (Nolvadex) 20 MG tablet 20 mg PO DAILY Qty: 0 Cyanocobalamin (Vitamin B-12) 1,000 MCG tablet 1,000 mcg PO DAILY Qty: 0 Metformin HCL (Glucophage *) 1,000 MG tablet 1,000 mg PO BID Qty: 0 TRILIPIX 12.5 mg PO DAILY Qty: 0 levothyroxine [Synthroid] 137 mcg tablet 137 mcg PO DAILY hydrochlorothiazide 12.5 mg capsule 12.5 mg PO DAILY losartan 100 mg tablet 100 mg PO DAILY aspirin 81 mg Tablet,Delayed Release (Dr/Ec) 81 mg PO DAILY Discontinued Aspirin (Aspirin *) 325 MG tablet 325 mg PO DAILY Qty: 0 Pravastatin (Pravachol ) 20 MG tablet 20 mg PO HS Qty: 0 Discharge Orders: Discharge Order (Routine); Ordered 08/08/24 Ordered By: Oswald Garrido Admission Data Admit Date/Time: 08/07/24 11:20 Attending Provider: Oswald Garrido Admit Provider: Chucho Santiago Primary Care Provider: PCP,NO Other Providers: Chucho Santiago; Rashid Fisher Hospital Stay Data Consultations 08/07/24 09:22 ED Decision to Admit Stat 08/07/24 17:09 Consult Vascular Surgery Routine Diagnostic Imagining Performed 08/07/24 07:46 CT angio head w con Stat CT angio neck with con Stat CT head/brain wo con Stat 08/07/24 10:01 MR brain wo con Urgent Pending Results Patient Have Any Pending Studies at Discharge: No Discharge Instructions Given to Patient (Per Discharging Provider) Follow up with Vascular surgery for out patient follow up carotid stenosis Total Time Total Time Spent Total Time Spent (In Minutes): 50 Coding Level of Care Code 27185 INP/OBS DISCH >30 MIN Diagnoses Stroke-like symptom R29.90 Carotid artery stenosis I65.29 Diabetes E11.9
[2024-08-08 11:12] VITALS: PULSE 54
[2024-08-08 11:51] LABS: Estimated Average Glucose 114 mg/dl; Hemoglobin A1C 5.6 % (4.5-5.6)
--- NOTE | 2024-08-08 12:54 | Electrocardiogram Report ---
Test Reason : Blood Pressure : */* mmHG Vent. Rate : 59 BPM Atrial Rate : 59 BPM P-R Int : 188 ms QRS Dur : 74 ms QT Int : 430 ms P-R-T Axes : 65 2 52 degrees QTcB Int : 425 ms Sinus bradycardia Low voltage QRS Possible Inferior infarct , age undetermined Cannot rule out Anteroseptal infarct , age undetermined Abnormal ECG No previous ECGs available Confirmed by Sudhakar Saenz ([id number]) on 08/08/2024 12:53:43 PM Referred By: Caitlin Mars Confirmed By: Sudhakar Saenz
== END 2024-08-08 12:21 | disposition home or self-care (01) ==
LOC: ED 07:29 → EDINP 07:29 → SUATTDRO 11:20 → MERGE 11:20 → 4W 16:53

== ENCOUNTER 2024-08-30 10:16 | Inpatient (IN) ==
--- NOTE | 2024-08-26 10:00 | Anesthesiology Consultation ---
Date of Service August 26, 2024 Assessment & Plan (1) Encounter for pre-operative examination: Chart Review Chart Review: Acceptable Risk for Surgery and Patient NOT seen in Pre Admission Testing - Check BSG AM DOS * Right arm restriction -Infectious Disease screening: Per PAT nursing assessment on 08/18/24. No known infectious disease contacts in past 10 days or current infectious disease sym ptoms. No recent travel outside the country. Patient seen by PCP 08/24/24= Transient global amneisa- referred to neurology. Hx of skin cancer- refrred to derm. Facial skin lesion- plastic surgery referral. Carotid artery stenosis/stroke-like symptoms- Patient already had follow-up with Dr. Fisher's office and has surgery scheduled. Bicuspid AV- had recent ECHO- following with cardio. HTN- elevated in the office- patient will check BP at home. Patient seen by cardiology 08/23/2024 = seen for routine visit to establish after moving. Having surgery with Dr. Fisher. History of bicuspid aortic valve by history. The most recent echo shows mild to moderate aortic stenosis with a mean gradient in the mid 20s. Was following with cardiology group in [place]. Was also following with neurology in [place]. Has had several episodes of transient global amnesia over the past 18 months. Recently seen by eye doctor and was noted to have changes in right not suspicious for cardioembolic stroke. Plan to imaging of head neck and brain which showed right carotid stenosis. Scheduled for surgery with Dr. Fisher 08/30/2024. Will repeat limited echo in approximately 6 months in office to reassess aortic valveimages done at the hospital are not adequate at this point. Recommend statin therapy before aortic valve and carotid disease. Will await aortic stenosis evaluation prior to recheck of stress testing. Will monitor BPhas not been optimally controlled. From a cardiac standpoint she is considered to be an appropriate candidate for the upcoming heart procedure. Will follow-up postop. History Surgery Operation Date: 08/30/24 10:15 Proposed Procedures p Right Transcarotid Artery Revascularization - Rashid Fisher MD Height/Weight Height: 5 ft 6 in Weight: 94.347 kg Allergies Allergy/AdvReac Type Severity Reaction Status Date / Time Sulfa (Sulfonamide Allergy Severe Anaphylaxis Verified 08/24/24 15:45 Antibiotics) ibuprofen Allergy Intermediate Hives Verified 08/24/24 15:45 Medications Home Medications Medication Instructions Recorded Confirmed Last Taken aspirin 81 mg capsule 81 mg PO QAM 08/18/24 08/24/24 Unknown atorvastatin 40 mg tablet 40 mg PO QAM 08/18/24 08/24/24 Unknown cholecalciferol (vitamin D3) 125 125 mcg PO QAM 08/18/24 08/24/24 Unknown mcg (5,000 unit) tablet (Vitamin D3) clopidogrel 75 mg tablet (Plavix) 75 mg PO QAM 08/18/24 08/24/24 Unknown hydrochlorothiazide 12.5 mg capsule 12.5 mg PO QAM 08/18/24 08/24/24 Unknown levothyroxine 137 mcg tablet 137 mcg PO QAM 08/18/24 08/24/24 Unknown (Synthroid) losartan 100 mg tablet 100 mg PO QPM 08/18/24 08/24/24 Unknown vitamin B12 0.5 mg-folic acid 1 mg 1 tab PO 2XWK 08/18/24 08/24/24 Unknown tablet clobetasol 0.05 % topical ointment 1 applic topical .twice a week 08/24/24 08/24/24 Unknown Past Medical History Medical History (Updated 08/26/24 @ 10:11 by Anna Roa PA-C) Aortic stenosis - Mild to moderate per records - Most recent ECHO 07/2024 showed no significant but per cardio visit 5- images were "not adequate" Bicuspid aortic valve - Recently moved from [place] - followed with [facility] - [facility] Cardio 08/23/24 - Mild to moderate aortic stenosis per records Carotid arterial disease - 80% stenosis right ICA per 07/2024 neck CTA (no stenosis to left ICA) - Moderate stenosis to origin of left vertebral artery Consumes a vegan diet Hearing loss Bilateral Hearing Aids History of depression History of Mohs micrographic surgery for skin cancer HLD (hyperlipidemia) HTN (hypertension) Hx of basal cell carcinoma Hx of breast cancer 2010 - Right - Chemo/XRT/Surgery Hx of type 2 diabetes mellitus Most recent A1C 5.6 as per patient - no longer taking any medications/injections Hypothyroidism PONV (postoperative nausea and vomiting) RLS (restless legs syndrome) Sleep apnea CPAP Stroke-like symptom 08/07/24 [facility] ER - referred by protective service specialist for right occular stroke - incidental finding of carotid artery stenosis. No residuals Transient global amnesia x3 episodes - no other incidences. Use to follow [place] [facility] - recently moved to [facility] - will be setting up with Neurology after meeting with new PCP [facility] Dr [place] Past Surgical History Surgical History History of lumpectomy of right breast Right arm restriction Hx of cholecystectomy Hx of colonoscopy Hx of hysterectomy Hx of wisdom tooth extraction Social History Smoking Status: Former smoker Smoking cigarettes per day: 1 per day Do You Dip or Chew Tobacco: No Hx Alcohol Use: No Hx Substance Use: No substance use type: does not use Lab Results Anesthesia Preop Results Results Anesthesia Widget: WBC 5.95 K/ul (4.8-10.8) 08/08/24 Hgb 13.2 g/dl (12.0-16.0) 08/08/24 Hct 39.6 % (37.0-47.0) 08/08/24 Plt 198 K/uL (130-400) 08/08/24 Na 140 mmol/L (136-145) 08/08/24 K 3.9 mmol/L (3.5-5.1) 08/08/24 Cl 105 mmol/L (98-107) 08/08/24 CO2 28 mmol/L (21-32) 08/08/24 BUN 14 mg/dl (6-23) 08/08/24 Creat 0.59 mg/dl (0.6-1.2) L 08/08/24 Glucose Level 98 mg/dl (70-99(Fasting)) 08/08/24 PT 10.4 Seconds (9.0-12.0) 08/07/24 PTT 26 Seconds (21-31) 08/07/24 INR 1.0 (0.9-1.1) 08/07/24 HA1c 5.6 % (4.5-5.6) 08/08/24 Urine Color Yellow 08/07/24 Urine Appearance Clear (Clear) 08/07/24 Urine pH 7.0 (4.5-7.5) 08/07/24 Urine Specific [place] 1.043 (1.000-1.030) H 08/07/24 Urine Protein Negative (Negative) 08/07/24 Urine Glucose (UA) Negative (Negative) 08/07/24 Urine Ketones Negative (Negative) 08/07/24 Urine Blood Negative (Negative) 08/07/24 Urine Nitrite Positive (Negative) A 08/07/24 Urine Bilirubin Negative (Negative) 08/07/24 Urine Urobilinogen Negative (Negative) 08/07/24 Urine Leukocyte Esterase 1+ (Negative) H 08/07/24 Urine WBC (Auto) 11-20 /hpf (0-5) H 08/07/24 Urine RBC (Auto) 3-5 /hpf (0-2) H 08/07/24 Urine Hyaline Casts (Auto) 0-2 /lpf (0-2) 08/07/24 Urine Epithelial Cells (Auto) 0-2 /hpf (0-2) 08/07/24 Urine Bacteria (Auto) 4+ (None Seen) H 08/07/24 Testing Laboratory Results 08/07/24= URINE CULTURE: Klebseilla pneumoniae >100,000 CFU/ml (urine done during [place] admission- no symptoms- abx deferred per discharge summary) Electrocardiogram Date: 08/07/24 Findings: + SB @ (59bpm) Low voltage QRS Possible inferior infarct, age undetermined Cannot rule out anteroseptal infarct, age undetermined Chest X-Ray Date: 08/07/24 Findings: + NAD Bilateral increase interstitial lung markings with right middle lung zone atelectatic band suggesting chronic lung changes. No acute cardiopulmonary abnormalities are identified. Echocardiogram Date: 08/07/24 EF: 65-70% LV Function: normal Other Findings: no LVH Valvular Disease: + no significant valvular disease ((per cardiology records - images were not adequate)) LV hyperdynamic Grade I DD Left atrium mildly dilated Injection of contrast documented no interatrial shunt (bubble study done) Other Testing Brain MRI 08/07/24= No acute intracranial findings. No evidence for acute infarct. White matter T2 hyperintense foci suggestive of moderate small vessel disease. Neck CTA 08/07/24= Severe (80%) stenosis of the proximal right internal carotid artery due to extensive calcified and noncalcified atherosclerotic plaque. No stenosis within the cervical left internal carotid artery. Dominant, patent righ t vertebral artery. Moderate stenosis at the origin of the left vertebral artery. Head CTA 08/07/24= No large vessel occlusion. No intracranial aneurysm. Head CT 08/07/24= No acute intracranial findings.
--- NOTE | 2024-08-29 10:28 | History & Physical Report ---
Date of Service August 29, 2024 History of Present Illness Primary Care Provider: NO PCP [facility] [place] [address] Consultation Signed Patient: LATIA ASH Admit Date: 08/07/24 MR#: [id number] Att Phy: Oswald Garrido MD Acct ID: [id number] Ines Phy: PCP,NO Date: 1950 Fam Phy: Age: 74 Location: 4W Sex: F Room/Bed: [facility] cc: ~ *NOTICE TO RECEIVING GREEN PARTY/AGENCY This information is strictly Confidential and protected under [place] law. [place] law prohibits you from making any further disclosure of this information unless further disclosure is expressly permitted by the written consent of the person to whom it pertains or is authorized by law. A general authorization for the release of medical or other information is not sufficient for this purpose. Hospital accepts no responsibility if the information is made available to any other person, INCLUDING THE PATIENT. Date of Consultation August 08, 2024 Assessment & Plan (1) Carotid artery stenosis: Due to the 90% stenosis we recommended an intervention on her carotid artery. We went over the risks options benefits of endarterectomy versus TCAR. She elected to go ahead with a TCAR approach. She can be discharged today and we will arrange for her surgical intervention. She needs to be on DAPT and a statin for the TCAR procedure. Thank you very much for letting us participate in the care of this patient. History of Present Illness Reason for Consultation: Right internal carotid artery stenosis Attending Physician: Oswald Garrido MD History of Present Illness This is a 74-year-old female who has known carotid disease. She was seen by retina specialist ischemic area in her retina. CT angiogram was done after she was sent to the emergency room. This showed a appears to be greater than 90% narrowing of her right internal carotid artery she denies any symptoms history of vascular insufficiency. She denies any TIAs cerebrovascular accidents, or amaurosis fugax. She denies any claudication. She was seen by cardiology in the past was told she has a bicuspid valve and a murmur. Allergies Allergy/AdvReac Type Severity Reaction Status Date / Time ibuprofen Allergy Mild HIVES Unverified 08/08/24 06:41 Sulfa (Sulfonamide Allergy Unknown Verified 08/08/24 06:41 Antibiotics) N Allergy Unknown Uncoded 08/08/24 06:41 SULFA Allergy Unknown Uncoded 08/08/24 06:41 Home Medications Medication Instructions Recorded Confirmed Type Calcium (Caltrate) 600 mg PO BID ##0 07/23/07 History Fish Oil (Honaker-3) 4 cap PO QD ##0 07/23/07 History Levothyroxine (Levothroid) 0.125 mg PO DAILY ##0 07/23/07 History Zolpidem Tartrate (Ambien Cr *) 12.5 mg PO HS ##0 07/23/07 History Clobetasol Cream 0.05 % QD ##1 09/04/10 History Furosemide (Lasix) 40 mg PO QD ##0 09/04/10 History Metopropolol 1 PO QD ##0 09/04/10 History Multivitamin 1 tab PO DAILY ##1 09/04/10 History Potassim Chloride 1 PO QD ##0 09/04/10 History Pristiq 50 mg PO QD ##1 09/04/10 History Vitmain D-3 1,000 PO QD ##1 09/04/10 History lisinopril 10 mg PO QD ##1 09/04/10 History Tamoxifen (Nolvadex) 20 mg PO DAILY ##0 10/25/10 History Cyanocobalamin (Vitamin B-12) 1,000 mcg PO DAILY ##0 04/24/11 History Metformin HCL (Glucophage *) 1,000 mg PO BID ##0 04/24/11 History TRILIPIX 12.5 mg PO DAILY ##0 04/24/11 History aspirin 81 mg tablet,delayed 81 mg PO DAILY 08/07/24 08/07/24 History release hydrochlorothiazide 12.5 mg capsule 12.5 mg PO DAILY 08/07/24 08/07/24 History levothyroxine 137 mcg tablet 137 mcg PO DAILY 08/07/24 08/07/24 History (Synthroid) losartan 100 mg tablet 100 mg PO DAILY 08/07/24 08/07/24 History atorvastatin 40 mg tablet 40 mg PO QAM #30 tabs 08/08/24 Rx clopidogrel 75 mg tablet 75 mg PO QAM #30 tabs 08/08/24 Rx Patient History Medical History Bicuspid aortic valve Social History Smoking Status: Never smoker Second Hand Exposure: No; Do You Dip or Chew Tobacco: No; Tobacco Cessation Education Requested by Patient: No Hx Alcohol Use: No Hx Substance Use: No Preferred Language: Uzbek Communication Ability: Effective Mixer Slagman Required: No Beliefs That Will Affect Care: None Current Living Situation: Spouse Other Information That Helps Us Care for You: No Feels Safe at Home: Yes Safety Concerns: Feels Safe At This Time Assistive Devices: CPAP Assistive Devices Comment: CPAP at night Review of Systems Review of Systems: All systems reviewed & are unremarkable except as noted in HPI & below Physical Exam Constitutional: WD/WN, vitals as above Neck: trachea midline Respiratory: normal respiratory effort, lungs clear to auscultation Cardiovascular: Rate/Rhythm: regular rate and regular rhythm Vessels: + carotid bruit (right) Extremities: normal capillary refill Gastrointestinal (Abdomen): Inspection/Auscultation: abdomen normal to inspection; abdomen not distended Percussion/Palpation: abdomen soft; abdomen nontender Neurologic: CN's II-XI intact bilaterally, normal sensation to monofilament and moves all extremities Psychiatric: A+Ox3, euthymic affect Results & Data Vital Signs (Past 12 Hours) Vital Signs Temp Pulse Pulse Resp BP Pulse Ox O2 Del Method 08/08/24 07:55 62 08/08/24 07:46 36.4 C L 54 L 18 155/72 H 94 Room Air 08/08/24 02:30 36.4 C L 59 L 18 158/76 H 95 Room Air 08/07/24 22:32 36.6 C 62 18 150/75 H 97 Room Air Signed By: <Electronically signed by Rashid Fisher MD> 08/08/24 1037 Created: 08/08/24 1030 The status of this report is Signed. Draft = Not yet reviewed or approved by Medical Physician. Signed = Reviewed and approved by Medical Physician. Allergies Allergy/AdvReac Type Severity Reaction Status Date / Time Sulfa (Sulfonamide Allergy Severe Anaphylaxis Verified 08/24/24 15:45 Antibiotics) ibuprofen Allergy Intermediate Hives Verified 08/24/24 15:45 Home Medications Medication Instructions Recorded Confirmed Type aspirin 81 mg capsule 81 mg PO QAM 08/18/24 08/24/24 History atorvastatin 40 mg tablet 40 mg PO QAM 08/18/24 08/24/24 History cholecalciferol (vitamin D3) 125 125 mcg PO QAM 08/18/24 08/24/24 History mcg (5,000 unit) tablet (Vitamin D3) clopidogrel 75 mg tablet (Plavix) 75 mg PO QAM 08/18/24 08/24/24 History hydrochlorothiazide 12.5 mg capsule 12.5 mg PO QAM 08/18/24 08/24/24 History levothyroxine 137 mcg tablet 137 mcg PO QAM 08/18/24 08/24/24 History (Synthroid) losartan 100 mg tablet 100 mg PO QPM 08/18/24 08/24/24 History vitamin B12 0.5 mg-folic acid 1 mg 1 tab PO 2XWK 08/18/24 08/24/24 History tablet clobetasol 0.05 % topical ointment 1 applic topical .twice a week 08/24/24 08/24/24 History Past Med/Surg History Problem List (Updated 08/26/24 @ 10:11 by Anna Roa PA-C) Encounter for pre-operative examination Diabetes Carotid arterial disease (Acute) Stroke-like symptom (Acute) 07/2024 Medical History (Updated 08/26/24 @ 10:11 by Anna Roa PA-C) RLS (restless legs syndrome) HLD (hyperlipidemia) HTN (hypertension) Aortic stenosis - Mild to moderate per records - Most recent ECHO 07/2024 showed no significant but per cardio visit 08/23/24- images were "not adequate" Consumes a vegan diet PONV (postoperative nausea and vomiting) Hx of type 2 diabetes mellitus Most recent A1C 5.6 as per patient - no longer taking any medications/injections History of Mohs micrographic surgery for skin cancer Hx of basal cell carcinoma Hx of breast cancer 2010 - Right - Chemo/XRT/Surgery Hearing loss Bilateral Hearing Aids History of depression Transient global amnesia x3 episodes - no other incidences. Use to follow [place] [facility] - recently moved to [facility] - will be setting up with Neurology after meeting with new PCP [facility] Dr Mays Sleep apnea CPAP Hypothyroidism Carotid arterial disease - 80% stenosis right ICA per 07/2024 neck CTA (no stenosis to left ICA) - Moderate stenosis to origin of left vertebral artery Stroke-like symptom 08/07/24 [facility] ER - referred by donation specialist for right occular stroke - incidental finding of carotid artery stenosis. No residuals Bicuspid aortic valve - Recently moved from [place] - followed with [facility] - seen by [facility] Cardio 08/23/24 - Mild to moderate aortic stenosis per records Surgical History Hx of wisdom tooth extraction Hx of hysterectomy Hx of cholecystectomy Hx of colonoscopy History of lumpectomy of right breast Right arm restriction Social History (Updated 08/24/24 @ 16:00 by Swati Pérez LPN) Smoking Status: Former smoker Tobacco Type: Cigarettes Age Started Using Tobacco: 17; Age Quit Using Tobacco: 18; packs per day: 0.1; Cigarettes Per Day: 1 per day; Second Hand Exposure: No; Do You Dip or Chew Tobacco: No; Tobacco Cessation Education Requested by Patient: No Hx Alcohol Use: No Hx Substance Use: No Preferred Language: Uzbek Communication Ability: Effective Mixer Slagman Required: No Beliefs That Will Affect Care: None marital status: Current Living Situation: Spouse current occupational status: retired How many Children do You have: 1 Other Information That Helps Us Care for You: No Feels Safe at Home: Yes Safety Concerns: Feels Safe At This Time Childhood Exposure to Second-Hand Smoke: Yes Diet Comment: Plant based caffeine: No Dental Care, Regularly: Yes Physical Activity Frequency: Does not Exercise Seatbelt Use: always Sunscreen Use: Yes Assistive Devices: CPAP, Glasses and Hearing Aid - Bilateral
[2024-08-30] MEDS: LACTATED RINGER'S 1,000 ML IV SCH ×2 (11:00→16:15)
[2024-08-30] MEDS: ASPIRIN 81 MG CHEW PO STA (11:30)
--- NOTE | 2024-08-30 11:42 | History & Physical Bridge Note ---
Date of Service August 30, 2024 History & Physical Bridge Note I have examined the patient, reviewed the History & Physical and in the interval since the performance of the History & Physical I have noted the following changes of clinical significance: no changes noted
[2024-08-30] MEDS ORDERED: fentaNYL citrate PF 100 MCG/2 ML VIAL ONE ×2 (11:54→13:01)
[2024-08-30] MEDS ORDERED: DEXAMETHASONE SOD INJ 4 MG/ML VIAL ONE (11:54)
[2024-08-30] MEDS ORDERED: ONDANSETRON INJ 2 MG/ML 2 ML VIAL ONE (11:54)
[2024-08-30] MEDS ORDERED: PROPOFOL IV EMULSION 10 MG/ML 20 ML VIAL IV ONE (11:54)
[2024-08-30] MEDS ORDERED: LIDOCAINE 2% 2 ML VIAL/AMP(20MG/ML) INFIL ONE (11:54)
[2024-08-30] MEDS ORDERED: ATROPINE SULFATE 0.1 MG/ML 10ML SYR IV PRN (11:56)
[2024-08-30] MEDS ORDERED: ONDANSETRON INJ 2 MG/ML 2 ML VIAL IV PRN ×2 (11:56→15:22)
[2024-08-30] MEDS ORDERED: HYDROmorphone INJ 1 MG/ML SYRINGE IV PRN (11:56)
[2024-08-30] MEDS ORDERED: fentaNYL citrate PF 100 MCG/2 ML VIAL IV PRN (11:56)
[2024-08-30] MEDS ORDERED: ePHEDrine sulfate 50 MG/ML AMP IV PRN (11:56)
[2024-08-30] MEDS ORDERED: ROCURONIUM BROMIDE 10 MG/ML 5 ML VIAL IV ONE (11:58)
[2024-08-30] MEDS ORDERED: GLYCOPYRROLATE 0.2 MG/ML VIAL ONE (11:59)
[2024-08-30] MEDS ORDERED: HEPARIN SOD (PORCINE) 1000 UNIT/ML ONE (11:59)
--- NOTE | 2024-08-30 12:00 | Anesthesiology Consultation ---
Date of Service August 30, 2024 Assessment & Plan Chart Review Chart Review: Acceptable Risk for Surgery Consults Requested none ASA ASA3 Proposed Anesthesia Anesthesia Type: General Anesthesia Line Insertion: Arterial line and Central Venous Catheter (possible ) History Surgery Operation Date: 08/30/24 12:30 Proposed Procedures p Right Transcarotid Artery Revascularization - Rashid Fisher MD Height/Weight Height: 5 ft 6 in Weight: 98.4 kg Allergies Allergy/AdvReac Type Severity Reaction Status Date / Time Sulfa (Sulfonamide Allergy Severe Anaphylaxis Verified 08/30/24 10:45 Antibiotics) ibuprofen Allergy Intermediate Hives Verified 08/30/24 10:45 Medications Home Medications Medication Instructions Recorded Confirmed Last Taken aspirin 81 mg capsule 81 mg PO QAM 08/18/24 08/30/24 08/29/24 07:00 atorvastatin 40 mg tablet 40 mg PO QAM 08/18/24 08/30/24 08/30/24 06:00 cholecalciferol (vitamin D3) 125 125 mcg PO QAM 08/18/24 08/30/24 08/29/24 07:00 mcg (5,000 unit) tablet (Vitamin D3) clopidogrel 75 mg tablet (Plavix) 75 mg PO QAM 08/18/24 08/30/24 08/30/24 06:00 hydrochlorothiazide 12.5 mg capsule 12.5 mg PO QAM 08/18/24 08/30/24 08/29/24 07:00 levothyroxine 137 mcg tablet 137 mcg PO QAM 08/18/24 08/30/24 08/30/24 06:00 (Synthroid) losartan 100 mg tablet 100 mg PO QPM 08/18/24 08/30/24 08/29/24 20:30 vitamin B12 0.5 mg-folic acid 1 mg 1 tab PO 2XWK 08/18/24 08/30/24 08/29/24 07:00 tablet clobetasol 0.05 % topical ointment 1 applic topical .twice a week 08/24/24 08/30/24 08/27/24 Active Medications Generic Name Dose Route Start Last Admin Trade Name Freq PRN Reason Stop Dose Admin Lactated Ringer's 1,000 mls @ 15 mls/hr 08/30/24 06:00 08/30/24 11:00 Lr IV 08/31/24 05:59 15 mls/hr .Q24H MAGED Administration NPO Date Last Intake of Fluids: 08/29/24 Time Last Intake of Fluids: 20:00 Date Last Intake of Solids: 08/29/24 Time Last Intake of Solids: 19:00 Last Intake of Solids Comment: Greater then 8 hrs Past Medical History Medical History RLS (restless legs syndrome) HLD (hyperlipidemia) HTN (hypertension) Aortic stenosis - Mild to moderate per records - Most recent ECHO 07/2024 showed no significant but per cardio visit 08/23/24- images were "not adequate" Consumes a vegan diet PONV (postoperative nausea and vomiting) Hx of type 2 diabetes mellitus Most recent A1C 5.6 as per patient - no longer taking any medications/injections History of Mohs micrographic surgery for skin cancer Hx of basal cell carcinoma Hx of breast cancer 2010 - Right - Chemo/XRT/Surgery Hearing loss Bilateral Hearing Aids History of depression Transient global amnesia x3 episodes - no other incidences. Use to follow [facility] - recently moved to located [facility] - will be setting up with Neurology after meeting with new PCP [facility] Dr Mays Sleep apnea CPAP Hypothyroidism Carotid arterial disease - 80% stenosis right ICA per 07/2024 neck CTA (no stenosis to left ICA) - Moderate stenosis to origin of left vertebral artery Stroke-like symptom 08/07/24 [facility] ER - referred by health it specialist for right occular stroke - incidental finding of carotid artery stenosis. No residuals Bicuspid aortic valve - Recently moved from [place] - followed with [facility] - seen by [facility] Cardio 08/23/24 - Mild to moderate aortic stenosis per records Exercise / Class Metabolic Activity III < 4 Walking/Shop/Light housework Past Surgical History Surgical History Hx of wisdom tooth extraction Hx of hysterectomy Hx of cholecystectomy Hx of colonoscopy History of lumpectomy of right breast Right arm restriction Past Anesthesia History No Hx of Anesthesia Complications History of PONV No Hx of PONV and No Hx of Motion Sickness Social History Smoking Status: Former smoker Smoking cigarettes per day: 1 per day Do You Dip or Chew Tobacco: No Hx Alcohol Use: No Hx Substance Use: No substance use type: does not use Physical Exam Vital Signs Last Vital Signs Temp 36.8 C 08/30/24 10:55 Pulse 61 08/30/24 10:55 Resp 20 08/30/24 10:55 BP 181/81 H 08/30/24 10:55 Pulse Ox 96 08/30/24 10:55 O2 Del Method Room Air 08/30/24 10:55 Constitutional no acute distress ENMT Mouth: no dentition abnormality Thyromental Distance: < 3.5 Finger Breadths Mallampati Class: II Neck normal visual inspection Respiratory normal respiratory effort Auscultation: lungs clear to auscultation bilaterally Cardiovascular Rate/Rhythm: regular rate and regular rhythm Neurologic moves all extremities Motor/Sensory: + sensory deficit CN 2-12 grossly intact Testing Laboratory Results Blood Type O Positive 08/30/24 10:24 Antibody Screen NEGATIVE 08/30/24 10:24 08/30/24 10:49 POC Glucose 92 Electrocardiogram Date: 08/07/24 Findings: + SB @ (59bpm) Low voltage QRS Possible inferior infarct, age undetermined Cannot rule out anteroseptal infarct, age undetermined Chest X-Ray Date: 08/07/24 Findings: + NAD Bilateral increase interstitial lung markings with right middle lung zone atelectatic band suggesting chronic lung changes. No acute cardiopulmonary abnormalities are identified. Echocardiogram Date: 08/07/24 EF: 65-70% LV Function: normal Other Findings: no LVH Valvular Disease: + no significant valvular disease ((per cardiology records - images were not adequate)) LV hyperdynamic Grade I DD Left atrium mildly dilated Injection of contrast documented no interatrial shunt (bubble study done) Other Testing Brain MRI 08/07/24= No acute intracranial findings. No evidence for acute infarct. White matter T2 hyperintense foci suggestive of moderate small vessel disease. Neck CTA 08/07/24= Severe (80%) stenosis of the proximal right internal carotid artery due to extensive calcified and noncalcified atherosclerotic plaque. No stenosis within the cervical left internal carotid artery. Dominant, patent right vertebral artery. Moderate stenosis at the origin of the left vertebral artery. Head CTA 08/07/24= No large vessel occlusion. No intracranial aneurysm. Head CT 08/07/24= No acute intracranial findings.
[2024-08-30] MEDS: ceFAZolin 2000MG 2,000 MG/15 ML SYR IV SCH ×2 (12:55→21:57)
--- OUTSIDE RECORDS SUMMARY | 2024-08-30 13:36 | External Medical Summary | Continuity of Care Document ---
Author Name Unknown Organization [facility] [address] [place], [place] [id number] Care Team Providers Care Maintenance Aide Name Role Phone Nicho Morton Primary Care Physician [phone] [id number] Date(s): 08/23/24 - 08/23/24 [facility] [address] [facility] [address] [facility], [address] [place], [place] [phone] Encounter Diagnosis Occlusion and stenosis of unspecified carotid artery(Final) - Discharge Disposition: Home or Self Care Attending Physician: MD Fisher Eugene J Referring Physician: MD Fisher Eugene J Encounter Type: Clinic Allergies, Adverse Reactions, Alerts Substance Criticality Severity Reaction Reaction Severity Status ibuprofen Hives Active sulfa drugs Unable to assess criticality Severe Anaphylaxis Active Immunizations Given and Recorded Vaccine Date Status Refusal Reason pneumococcal 23-valent vaccine 06/06/11 Given influenza virus vaccine, inactivated 06/06/11 Give n zoster vaccine live 03/07/11 Given Medications aspirin 81 mg oral delayed release tablet Start: 08/23/24 3:05:00 PM EST, 1 tab, PO, Daily, Disp# 90 tab, with plavix, other Start Date: 08/23/24 Status: Ordered Quantity: 90.0 Unit: tab Repeat number: 1 atorvastatin 40 mg oral tablet Start: 08/23/24 2:23:00 PM EST, 1 tab, PO, qhs Start Date: 08/23/24 Status: Ordered Repeat number: 1 clobetasol 0.05% topical ointment Start: 08/23/24 2:24:00 PM EST, 1 appl, topical, Daily Start Date: 08/23/24 Status: Ordered Repeat number: 1 clopidogrel 75 mg oral tablet Start: 08/23/24 2:23:00 PM EST, 1 tab, PO, Daily Start Date: 08/23/24 Status: Ordered Repeat number: 1 hydroCHLOROthiazide 12.5 mg oral capsule Start: 08/23/24 2:23:00 PM EST, 1 cap, PO, Daily Start Date: 08/23/24 Status: Ordered Repeat number: 1 losartan 100 mg oral tablet Start: 08/23/24 2:24:00 PM EST, 1 tab, PO, Daily Start Date: 08/23/24 Status: Ordered Repeat number: 1 Synthroid 137 mcg (0.137 mg) oral tablet Start: 08/23/24 2:23:00 PM EST, 1 tab, PO, Daily Start Date: 08/23/24 Status: Ordered Repeat number: 1 Vitamin B-12 Start: 08/23/24 2:26:00 PM EST, See Instructions, 2500 mcg 2 x week Start Date: 08/23/24 Status: Ordered Repeat number: 1 Vitamin D3 125 mcg (5000 intl units) oral tablet Start: 08/23/24 2:25:00 PM EST, See Instructions, 1 tab PO once a day, taking 2/ day 2x week. Start Date: 08/23/24 Status: Ordered Repeat number: 1 Problem List Condition Confirmation Course Effective Dates Status Health Status Informant Aortic stenosis Confirmed Active Bicuspid aortic valve Confirmed Active Bilateral carotid artery stenosis Confirmed Active Biopsy of breast Confirmed Active Breast cancer Confirmed Active Breast lumpectomy Confirmed Active CA - Cancer Confirmed Active Carotid artery stenosis Confirmed Active Cholecystectomy Confirmed Active DCIS Confirmed Active Depression Confirmed Active Diabetes mellitus screening Confirmed Active Fuchs' corneal dystrophy Confirmed Active H/O: arthritis Confirmed Active H/O: hysterectomy Confirmed Active Heart murmur Confirmed Active Hypercholesterolemia Confirmed Active Hyperlipidemia Confirmed Active HYPERTENSION Confirmed Active Hypertension Confirmed Active Hypertriglyceridemia Confirmed Active Neuropathy Confirmed Active Palpitations Confirmed Active Partial mastectomy 1 Confirmed Active Pneumonia Confirmed Active Restless legs syndrome (RLS) Confirmed Active Sleep apnea Confirmed Active Sleep disturbance Confirmed Active SOB - Shortness of breath Confirmed Active Thyroid disorder Confirmed Active Type 2 diabetes mellitus Confirmed Active Venous insufficiency 2 Confirmed Active VITILIGO Confirmed Active 1right 2ble Procedures Procedure Date Related Diagnosis Body Site Status Venous insufficiency of lower extemity 1 Completed 1ble Results Laboratory List Name Date Platelet Function (P2Y12 Receptor) (PLT FUNCTION P2Y12) 08/23/24 Most recent to oldest [Reference Range]: 1 P2Y12 Platelet Function [194-418 PRU] 85 PRU 1 *LOW* (08/23/24 12:04 PM) 1Result Comment: PRU reference range is 194-418 (healthy adults, no drug treatment). Post Drug Results: Lower PRU levels are expected following treatment with antiplatelet drugs. Post-treatment values are usually below the stated reference range above. The post-drug PRU values reported in the [employer] P2Y12 package insert are 18-435. This broader range reflects the variability in drug response and is consistent with significant numbers of patients with decreased sensitivity to P2Y12 receptor antagonists (prasugrel or clopidogrel). Clinical studies suggest an on-treatment PRU>230 indicates less than optimal response to therapy, and PRU<208 at 12-24 hours after percutaneous intervention or during follow-up is associated with a lower risk of cardiovascular events (1). (1).Standard-vs high-dose clopidogrel based on platelet function testing after percutaneouscoronary intervention: the GRAVITAS randomized trial. Geovany et al. RAIV. 2010September 04; 305(11): 5698-3842. doi: 10.1001/ravi.2011.290 Social History Social History Type Response Smoking Status Never smoked cigaret vilma Sex Female Sex Representation Female (finding) Patient Care team information Care Team Personnel Name: CRYSTAL Barger Tara Position: Nurse Pract - Family Med Member Role: Lifetime Relationship [address]: [address] [place] [address] Telecom: [phone] Name: Honorio Sommers Kimberly Position: Pharmacist BCMA Member Role: Pharmacy - Lifetime Address: [address] Name: DO Morton Richard C Position: Referring DIRECT Member Role: Primary Care Provider Address: [address] [address] [place] Telecom: [phone] Name: MD Waterman Claudia J Position: Physician - Radiologist Member Role: Lifetime Relationship Address: [address] [place] [address] Telecom: [phone] Care Team Related Persons Name: REGINO MILLER Name: JOSSELYN VALENCIA Insurance Providers Guarantor name: LATIA Armendariz MIHIR Health Plan Information #: 1 Payer: [employer] PPO Member Number: [id number] Policy Number: NA Group Number: [id number] Health Plan Information #: 2 Payer: [employer] PP Member Number: [id number] Policy Number: NA Group Number: [id number]
--- OUTSIDE RECORDS SUMMARY | 2024-08-30 13:36 | External Medical Summary | Continuity of Care Document ---
Author Name Unknown Organization [facility] [address] [facility] Address [address] [place], [place] [id number] Care Team Providers Care Roll Plugger Name Role Phone Nicho Morton Primary Care Physician [id number] [id number] Date(s): 08/23/24 - 08/23/24 [facility] [address], [address] [place] [address] [phone] Encounter Diagnosis Body mass index [BMI] 33.0-33.9, adult(Discharge Diagnosis) - 08/23/24 Bicuspid aortic valve(Discharge Diagnosis) - 08/23/24 Bilateral carotid artery stenosis(Discharge Diagnosis) - 08/23/24 Aortic stenosis(Discharge Diagnosis) - 08/23/24 Hypercholesterolemia(Discharge Diagnosis) - 08/23/24 Carotid artery stenosis(Discharge Diagnosis) - 08/23/24 Discharge Disposition: Home or Self Care Attending Physician: DO Silveira Michelle L Encounter Type: Clinic Allergies, Adverse Reactions, Alerts Substance Criticality Severity Reaction Reaction Severity Status ibuprofen Hives Active sulfa drugs Unable to assess criticality Severe Anaphylaxis Active Assessment and Plan Extracted from: Title:Cardiology Office Visit Note Author:DO Silveira Michelle L Date:08/23/24 1.Bicuspid aortic valve 2.Aortic stenosis 3.Hypercholesterolemia 4.Bilateral carotid artery stenosis I will repeat a limited echo on her in approximately 6 months here in the office to reassess her aortic valve. The images done at the hospital are not adequate at this point. Statin therapy is recommended to achieve an LDL cholesterol of less than 50-60. This is not only for her aortic valve but also for her carotid disease. Her MRI of the brain also shows moderate small vessel changes in the brain. 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 She has not had stress testing done since she was back in [place] in 2010. At this point, I am not sure that we want to do stress testing on her given the moderate aortic stenosis. When I had a chance to reassess her aortic valve we will decide if we want to recheck stress testing on her. She has never had heart catheterization. We also need to monitor her blood pressure as I suspect her blood pressures have not been optimally controlled. She may benefit from being on a statin or an ARB. From a cardiac standpoint she is considered to be an appropriate candidate for the upcoming carotid procedure. I will follow-up with her after her procedure. Thank you for allowing me to participate in the care of this very nice patient. I look forward to participating in their care with you. I will follow up after remaining tests are complete. Alice Silveira DO [facility] Immunizations Given and Recorded Vaccine Date Status [...] Date: 08/23/24 Status: Ordered Repeat number: 1 Mental Status 08/23/24 Barriers to Learning one year None evide nt Mandatory Health Literacy Documentation Yes Health Literacy Communication Barriers N ever Primary Language Kittitian Problem List Condition Confirmation Course Effective Dates [...] Confirmed Active VITILIGO Confirmed Active 1right 2ble Diagnosis Diagnosis Type Effective Dates Health Status Clinical Service Informant Carotid artery stenosis Discharge Diagnosis 08/23/24 Non-Specifie d Body mass index [BMI] 33.0-33.9, adult Discharge Diagnosis 08/23/24 Non-Specifie d Bicuspid aortic valve Discharge Diagnosis 08/23/24 Non-Specifie d Aortic stenosis Discharge Diagnosis 08/23/24 Non-Specifie d Bilateral carotid artery stenosis Discharge Diagnosis 08/23/24 Non-Specifie d Hypercholesterolemia Discharge Diagnosis 08/23/24 Non-Specifie d Procedures Procedure Date Related Diagnosis Body Site Status Venous insufficiency of lower extemity 1 Completed 1ble Vital Signs Most recent to oldest [Reference Range]: 1 Height 167.5 cm (08/23/24 2:28 PM) Patient Weight 94 kg (08/23/24 2:28 PM) Body Mass Index 33.5 kg/m2 (08/23/24 2:28 PM) Heart Rate 61 bpm (08/23/24 2:28 PM) Blood Pressure 160/72mmHg (08/23/24 2:28 PM) Cuff Pulse Pressure 88 mmHg (08/23/24 2:28 PM) BP Location # 1 Left Arm (08/23/24 2:28 PM) Social History Social History Type Response Smoking Status Never smoked cigaret vilma Sex Female Sex Representation Female (finding) Cardiology Outpatient Note * DO Silveira Michelle L: PERFORM Event Display: Cardiology Outpt Note Authored Date: [id number] Primary Care Provider DO Morton Richard C Referring Provider Dr. Rashid Fisher Reason for Consultation establish Chief Complaint pt routine visit, to establish after moving. having surgery with bennett. does have fatigue. History of Present Illness Junie is a 74-year-old woman with a history of a bicuspid aortic valve by history who on the most recent echo shows mild to moderate aortic stenosis with a mean gradient in the mid 20s who recently moved back to [place] from [facility]. She was following with the cardiology group there regularly. She has also been following with a neurologist there and tells me that she has had 3 episodes of transient global amnesia over the last 18 months or so. When she came back to [place] she was seen by her eye doctor and was noted to have changes in her retina which were suspicious for cardioembolic stroke. This led to a CT of her brain as well as an MRI and a CTA which shows a tight right carotid stenosis. The right internal carotid artery appears to have progressed significantly since last checked in July 2023. She is already scheduled for Dr. Fisher to have stent placement in this carotid later this month onMar 11. Prior to returning to [place] and the moving of her entire household she exercise regularly with walking on a treadmill. She denies symptoms but she does note with the move recently she feels extremely tired and fatigued. We reviewed her lipids and she was previously on a statin but stopped taking it. I would mention that since the carotid disease was this discovered she was restarted on a atorvastatin 40 mg. She will need to have labs rechecked in 2 to [address] Fisher also started her onPlavix for the upcoming procedure. Review of Systems General: no fevers, chills, weight loss of gain HEENT: no changes in vision or hearing; no recent falls or head trauma Cardiac: No other symptoms other than reported in HPI Pulmonary: No symptoms other than reported in HPI Abdomen: No changes in bowel habits, nausea, vomiting, no BRBPR : no changes in urine frequency Extremities: no edema or claudication Physical Exam Vitals & Measurements HR:61(Monitored) BP:160/72 SpO2:98% HT:167.5cm WT:94kg WT:94.000kg(Dosing) BMI:33.5 BMI:33.50 kg/m2 Patient is awake alert and oriented x3 and in no acute distress HEENT: 2+ carotid upstrokes,right carotid bruit LUNGS: Clear to auscultation bilaterally no rales rhonchi or wheezing HEART: Regular rate and rhythmThere is a grade 3/6 systolic crescendo decrescendo murmur at the base. Interestingly I do not hear a left carotid bruit but do hear a loud right carotid bruit ABDOMEN: Soft nontender nondistended positive bowel sounds EXTREMITIES: No evidence of clubbing cyanosis or edema PSYCHIATRIC: Patients affect appeared appropriate Assessment/Plan 1.Bicuspid aortic valve 2.Aortic stenosis 3.Hypercholesterolemia 4.Bilateral carotid artery stenosis I will repeat a limited echo on her in approximately 6 months here in the office to reassess her aortic valve. The images done at the hospital are not adequate at this point. Statin therapy is recommended to achieve an LDL cholesterol of less than 50-60. This is not only for her aortic valve but also for her carotid disease. Her MRI of the brain also shows moderate small vessel changes inthe brain. 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 She has not had stress testing done since she was back in [place] in 2010. At this point, I am not sure that we want to do stress testing on her given the moderate aortic stenosis. When I had a chance to reassess her aortic valve we will decide if we want to recheck stresstesting on her. She has never had heart catheterization. We also need to monitor her blood pressure as I suspect her blood pressures have not been optimally controlled. She may benefit from being on a statin or an ARB. From a cardiac standpoint she is considered to be an appropriate candidate for the upcoming carotidprocedure. I will follow-up with her after her procedure. Thank you for allowing me to participate in the care of this very nice patient. I look forward toparticipating in their care with you. I will follow up after remaining tests are complete. Alice Silveira DO [facility] Attestation I, Alice Silveira DO [facility] have spent45 minutes performing the activities necessary in the patients visit. This time does not include separately reported service. Activities include the following: _x_ review of the medical record _x_ obtaining a history _x_ physical exam/evaluation _x_counseling/educating patient/family/caregiver x__ discussion/referral to other healthcare professionals x__ documenting care in the medical record x__ independent interpretation of results _x_ communication of results to patient/family/caregiver x__ coordination of care Problem List/Past Medical History Ongoing Aortic stenosis Bicuspid aortic valve Bilateral carotid artery stenosis Biopsy of breast Breast cancer Breast lumpectomy CA - Cancer Carotid artery stenosis Cholecystectomy DCIS Depression Diabetes mellitus screening Fuchs' corneal dystrophy H/O: arthritis H/O: hysterectomy Heart murmur Hypercholesterolemia Hyperlipidemia HYPERTENSION Hypertension Hypertriglyceridemia Neuropathy Palpitations Partial mastectomy Pneumonia Restless legs syndrome (RLS) Sleep apnea Sleep disturbance SOB - Shortness of breath Thyroid disorder Type 2 diabetes mellitus Venous insufficiency VITILIGO Resolved Nodular basal cell carcinoma Procedure/Surgical History Venous insufficiency of lower extemity Medications aspirin(aspirin 81 mg oral delayed release tablet), 81 mg= 1 tab, PO, Daily atorvastatin(atorvastatin 40 mg oral tablet), 40 mg= 1 tab, PO, qhs cholecalciferol(Vitamin D3 125 mcg (5000 intl units) oral tablet), See Instructions ciclopirox topical(Loprox 0.77% topical cream), 1 appl, topical, bid, 2 refills clobetasol topical(clobetasol 0.05% topical ointment), 1 appl, topical, Daily clopidogrel(clopidogrel 75 mg oral tablet), 75 mg= 1 tab, PO, Daily cyanocobalamin(Vitamin B-12), See Instructions fenofibric acid(Trilipix 135 mg oral delayed release capsule), See Instructions, 3 refills hydroCHLOROthiazide(hydroCHLOROthiazide 12.5 mg oral capsule), 12.5 mg= 1 cap, PO, Daily levothyroxine(Synthroid 137 mcg (0.137 mg) oral tablet), 137 mcg= 1 tab, PO, Daily losartan(losartan 100 mg oral tablet), 100 mg= 1 tab, PO, Daily omega-3 polyunsaturated fatty acids(Lovaza 1000 mg oral capsule), See Instructions, 10 refills raloxifene(Evista 60 mg oral tablet), 60 mg= 1 tab, PO, Daily, 3 refills Allergies sulfa drugs(Severe)Anaphylaxis ibuprofenHives Social History Smoking Status Never smoked cigarettes Electronic Signature on File Electronically Reviewed/Signed by: Alice Silveira DO Author Signature Dt/Tm:08/23/2024 04:52 PM Division of General Cardiology [facility] Patient Care team information Care Team Personnel Name: CRYSTAL Barger Tara Position: Nurse Pract - Family Med Member Role: Lifetime Relationship Address: [address] [place] [address] Telecom: [phone] Name: Honorio Sommers Kimberly Position: Pharmacist BCMA Member Role: Pharmacy - Lifetime Address: [address] Name: DO Morton Richard C Position: Referring DIRECT Member Role: Primary Care Provider Address: [facility] [address] Telecom: [phone] Name: MD Waterman Claudia J Position: Physician - Radiologist Member Role: Lifetime Relationship Address: [address] [place] [address] Telecom: [phone] Care Team Related Persons Name: REGINO MILLER Name: JOSSELYN VALENCIA Insurance Providers Guarantor name: JUNIE ASH Health Plan Information #: 1 Payer: [employer] Member Number: [id number] Policy Number: NA Group Number: [id number] Health Plan Information #: 2 Payer: [employer] Member Number: [id number] Policy Number: NA Group Number: [id number]
[2024-08-30] MEDS: BUPIVACAINE/EPINEPHRINE 0.5% MPF 1:200,000 30 ML VIAL ONE (13:41)
[2024-08-30] MEDS: SURGICEL ABSORB HEMOSTAT 2IN X 14IN TOP ONE (13:42)
[2024-08-30] MEDS: THROMBIN FOR SOLN 20000 UNIT KIT ONE (13:42)
[2024-08-30] MEDS: GELATIN SPONGE SZ 100 ONE (13:42)
[2024-08-30] MEDS: VISIPAQUE IV ONE (13:43)
[2024-08-30] MEDS ORDERED: SUGAMMADEX SODIUM 200 MG/2 ML VIAL IV ONE (13:44)
--- NOTE | 2024-08-30 13:51 | Procedure Note ---
Angiogram Post Procedure Fluoroscopy Time (minutes): 5 Radiation (mGy): 20 Contrast: 9 Post Operative Report Pre & Post Diagnosis Operation Date: 08/30/24 12:30 Pre-Op Diagnosis: Right Internal Carotid Artery Stenosis Post-Op Diagnosis: Right Internal Carotid Artery Stenosis I identified the patient and participated in the time-out.: Yes Procedure Operation Date: 08/30/24 12:30 Actual Procedures p Right Transcarotid Artery Revascularization with Ultrasound of Left Common Femoral Vein(Right) - Rashid Fisher MD Surgeon Rashid Fisher MD Foreign Correspondent Jana Estimated Blood Loss 20 Findings Consistent with Post-Op Diagnosis Specimens none Anesthesia Type General Complications none Disposition Accompanied Patient To Recovery: No Disposition: Recovery Room Indications This is a 74-year-old female was found to have severe stenosis of the right internal carotid artery. Endarterectomy versus TCAR was recommended. We went over the risk option benefits that she elected to go ahead with a TCAR procedure. I have discussed the risks options and benefits of the procedure with the patient. The patient understands the risks options and benefits and agrees to the procedure. Description of Procedure The patient was taken to the operating room and placed in supine position. After general anesthesia was accomplished the groins and right side of the neck and chest were prepped and draped in a sterile manner. Timeout was performed and the patient was identified. A transverse incision was made just above the clavicle between the heads of the sternocleidomastoid along the old neck incision scar. This is carried down to where the common carotid artery was identified. It was isolated. It was slung with umbilical tape. Next the U stitch was placed in the common carotid artery with a 5-0 Prolene suture. Patient was given 9000 heparin at that time. Ultrasound was then used to localize the left common femoral vein. The vein was patent and compressed easily. Under ultrasound guidance the left common femoral vein was punctured and the venous sheath was inserted. This was aspirated and flushed with heparinized saline. ACT at that time was 273. Using micropuncture technique the common carotid artery was punctured. The micro sheath was inserted to 3 cm. Injection was then done showing the bifurcation. There was a significant lesion seen at the origin of the internal carotid artery on the right side. We then inserted the J-wire left and short of the lesion. The micro sheath was removed and the TCAR sheath was inserted. Once it was in place and held against the artery it was sutured to the chest wall and the incision edge. We then flushed the tubing appropriately. The venous return to was clamped onto the TCAR sheath. It was flushed through and then attached to the venous inflow sheath in the left groin. Sheath was checked for flow. The saline cleared nicely. The common carotid artery was then clamped. Flow reversal was instituted.The flow reversal was again checked for flow and found to have good flow after clamping. We inserted a 5.5 x 25 balloon backloaded on the wire. The wire was passed through the lesion into the petrous portion of the internal carotid. The 5.5 balloon was then advanced to the lesion. Lesion was then predilated with a 5.5 mm balloon. Balloon was removed. We then inserted the 9/7 x 30 stent. This was deployed across the lesion without difficulty. The catheter was removed. Being that we advanced the stent to be above a turn we had to extend the stent with a 9 x 30. This was inserted over the wire. We placed the appropriate overlap and the stent was not deployed without difficulty. There appeared to be still a slight amount of narrowing at the midportion of the stent. We then inserted a 6 x 35 balloon and redilated this area. Widely patent stent was then noted on fluoroscopy. The carotid was allowed to go 2 minutes with flow reversal. Completion angiogram was done at that time which showed a widely patent carotid stent. At that point the common carotid artery was unclamped. The venous return tubing was clamped and removed from the TCAR sheath. The blood was allowed to flow back into the venous system. The TCAR sheath was then removed and the 5-0 Prolene suture securely tied. The patient was given 25 mg of protamine. Hemostasis was noted of the puncture site. An ACT was then drawn. The ACT was 135. The sheath was pulled from the groin and pressure was applied. Wound was irrigated with saline solution. Adequate hemostasis was obtained of the wound. Once this was noted the wound was closed in usual fashion using a 3-0 Vicryl suture for the subcutaneous layer and a 4-0 subcuticular Vicryl suture for the skin edges. Dermabond was used for dressing. The patient left the operation room in satisfactory condition and tolerated the procedure well. All needle and sponge counts were correct at the end of the procedure. Maite Allen Pac assisted due to lack of resident availability and was necessary for positioning, draping, retraction, wound closure deep layers, subcutaneous tissue, and skin closure and was necessary for assisting with the case. I attest to the content of the Intraoperative Record and any orders documented therein. Any exceptions are noted below.
[2024-08-30] MEDS: ceFAZolin 330 MG/ML 1 GM VIAL ONE (13:54)
--- NOTE | 2024-08-30 14:54 | Anesthesiology Progress Note ---
Date of Service August 30, 2024 Anesthesia Post Procedure Vital Signs Vital Signs: Temp Pulse Resp BP BP BP Pulse Ox 08/30/24 14:45 36.5 C 68 16 141/64 H 93 08/30/24 14:35 70 14 147/53 H 98 08/30/24 14:25 75 16 137/65 98 08/30/24 14:18 36 C L 88 16 159/55 H 151/68 H 97 08/30/24 10:55 36.8 C 61 20 181/81 H 186/80 H 96 O2 Del Method O2 Flow Rate 08/30/24 14:45 Room Air 08/30/24 14:35 Oxymask 3 08/30/24 14:25 Oxymask 4 08/30/24 14:18 Oxymask 6 08/30/24 10:55 Room Air Transfer of Care Handoff Completed per policy Notes Mental Status: alert / awake / arousable Patient Amnestic to Procedure: Yes Nausea / Vomiting: adequately controlled Pain: adequately controlled Airway Patency, RR, SpO2: stable & adequate BP & HR: stable & adequate Hydration State: stable & adequate Anesthetic Complications: no major complications apparent and Pt Satisfied with anesthetic care Notes: At baseling, cn2-12 intact moves all ext
[2024-08-30] MEDS ORDERED: STAT IV Infusion **Titration per Protocol STA (15:22)
[2024-08-30] MEDS ORDERED: oxyCODONE/ACETAMINOPHEN 5mg/325mg TAB PO PRN (15:22)
[2024-08-30] MEDS ORDERED: PHENYLEPHRINE/NSS 25 MG/250 ML BAG IV PRN (15:22)
--- NOTE | 2024-08-30 16:13 | Critical Care Consultation ---
Date of Consultation August 30, 2024 Assessment & Plan (1) Carotid arterial disease: Postop day 0 status post right TCAR. Continue expectant management with BP control as per vascular surgery parameters, pain control per vascular surgery parameters and antiplatelet regimen/statin regimen for vascular surgery parameters. Radial arterial line in place. IV fluids are ordered by vascular surgeon at a rate of 125 mL/h. Diet ordered per vascular surgeon. Continue frequent neurovascular checks and frequent checks of the patient's airway. ICU team services are available should the need arise. Thank you for the consult and will continue to monitor while the patient remains under ICU status. History of Present Illness Reason for Consultation: Right TCAR Attending Physician: Rashid Fisher MD History of Present Illness 74-year-old female with a history of transient global amnesia, bicuspid aortic valve and ischemic stroke in her right eye who presented for an elective TCAR of her right carotid artery today. Cardiology note from 08/23/2024 reviewed as well. Patient's cardiac issues felt to be stable. Patient had an uneventful TCAR and is in stable condition currently with an arterial line in place. Patient currently on dual antiplatelets, antihypertensives and statin therapy per vascular surgeon. She currently denies any chest pain, nausea, vomiting or dysphagia. She does have some soreness in her throat and was requesting a lozenge. She also notes that the right side of her neck at the incision site feels "stiff". 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 Her and her recently moved from [place], but are originally from [facility]. She briefly smoked as a teenager for a few months, but then quit. Allergies Allergy/AdvReac Type Severity Reaction Status Date / Time Sulfa (Sulfonamide Allergy Severe Anaphylaxis Verified 08/30/24 10:45 Antibiotics) ibuprofen Allergy Intermediate Hives Verified 08/30/24 10:45 Home Medications Medication Instructions Recorded Confirmed Type aspirin 81 mg capsule 81 mg PO QAM 08/18/24 08/30/24 History atorvastatin 40 mg tablet 40 mg PO QAM 08/18/24 08/30/24 History cholecalciferol (vitamin D3) 125 125 mcg PO QAM 08/18/24 08/30/24 History mcg (5,000 unit) tablet (Vitamin D3) clopidogrel 75 mg tablet (Plavix) 75 mg PO QAM 08/18/24 08/30/24 History hydrochlorothiazide 12.5 mg capsule 12.5 mg PO QAM 08/18/24 08/30/24 History levothyroxine 137 mcg tablet 137 mcg PO QAM 08/18/24 08/30/24 History (Synthroid) losartan 100 mg tablet 100 mg PO QPM 08/18/24 08/30/24 History vitamin B12 0.5 mg-folic acid 1 mg 1 tab PO 2XWK 08/18/24 08/30/24 History tablet clobetasol 0.05 % topical ointment 1 applic topical .twice a week 08/24/24 0 08/30/24 History Patient History Medical History RLS (restless legs syndrome) HLD (hyperlipidemia) HTN (hypertension) Aortic stenosis - Mild to moderate per records - Most recent ECHO 07/2024 showed no significant but per cardio visit 08/23/24- images were "not adequate" Consumes a vegan diet PONV (postoperative nausea and vomiting) Hx of type 2 diabetes mellitus Most recent A1C 5.6 as per patient - no longer taking any medications/injections History of Mohs micrographic surgery for skin cancer Hx of basal cell carcinoma Hx of breast cancer 2010 - Right - Chemo/XRT/Surgery Hearing loss Bilateral Hearing Aids History of depression Transient global amnesia x3 episodes - no other incidences. Use to follow [facility] - recently moved to [facility] - will be setting up with Neurology after meeting with new PCP [facility] [place] Sleep apnea CPAP Hypothyroidism Carotid arterial disease - 80% stenosis right ICA per 07/2024 neck CTA (no stenosis to left ICA) - Moderate stenosis to origin of left vertebral artery Stroke-like symptom 08/07/24 [facility] ER - referred by inspector eyeglass for right occular stroke - incidental finding of carotid artery stenosis. No residuals Bicuspid aortic valve - Recently moved from [place] - [facility] - seen by [facility] 08/23/24 - Mild to moderate aortic stenosis per records Surgical History Hx of wisdom tooth extraction Hx of hysterectomy Hx of cholecystectomy Hx of colonoscopy History of lumpectomy of right breast Right arm restriction Social History (Updated 08/24/24 @ 16:00 by OPAL Nicholas Smoking Status: Former smoker Tobacco Type: Cigarettes Age Started Using Tobacco: 17; Age Quit Using Tobacco: 18; packs per day: 0.1; Cigarettes Per Day: 1 per day; Second Hand Exposure: No; Do You Dip or Chew Tobacco: No; Tobacco Cessation Education Requested by Patient: No Hx Alcohol Use: No Hx Substance Use: No Preferred Language: Slovak Communication Ability: Effective 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 Beliefs That Will Affect Care: None marital status: Current Living Situation: Spouse current occupational status: retired How many Children do You have: 1 Other Information That Helps Us Care for You: No Feels Safe at Home: Yes Safety Concerns: Feels Safe At This Time Childhood Exposure to Second-Hand Smoke: Yes Diet Comment: Plant based caffeine: No Dental Care, Regularly: Yes Physical Activity Frequency: Does not Exercise Seatbelt Use: always Sunscreen Use: Yes Assistive Devices: CPAP, Glasses and Hearing Aid - Bilateral Review of Systems Review of Systems: All systems reviewed & are unremarkable except as noted in HPI & below Physical Exam Physical Exam: Constitutional: Patient appears to be of their stated age. Patient is in no apparent distress. Patient is well-developed. Eyes: Pupils are equal round and reactive to light. Conjunctivae are normal. Anicteric sclera. Ears nose, mouth and throat: Mallampati class 2. Normal posterior oropharynx. Uvula is midline. Neck: Right TCAR incision site appears clean dry and intact. Mild bruising noted. Respiratory: Clear to auscultation bilaterally. No use of accessory muscles. No significant clubbing noted. Cardiovascular: Regular rate and rhythm. No murmurs. No edema. Gastrointestinal: Normal bowel sounds, soft, nontender and nondistended. No hepatosplenomegaly noted. Musculoskeletal: No cyanosis. Patient is able to move all extremities. Strength is 5 out of 5 in the upper and lower extremities. Skin: No rashes, warm dry and intact. Left femoral puncture site appears clean dry and intact. Neurologic: No obvious focal neurological deficits seen. Psychiatric: Alert and oriented x3 with a euthymic affect. Results & Data Results & Data Vital Signs (Past 12 Hours) Vital Signs Temp Pulse Pulse Resp BP BP BP 08/30/24 15:24 63 15 138/86 08/30/24 14:55 66 16 156/56 H 08/30/24 14:45 36.5 C 68 16 141/64 H 08/30/24 14:35 70 14 147/53 H 08/30/24 14:25 75 16 137/65 08/30/24 14:18 36 C L 88 16 159/55 H 08/30/24 10:55 36.8 C 61 20 181/81 H BP Pulse Ox O2 Del Method O2 Flow Rate 08/30/24 15:24 94 Room Air 08/30/24 14:55 144/64 H 95 Room Air 08/30/24 14:45 93 Room Air 08/30/24 14:35 98 Oxymask 3 08/30/24 14:25 98 Oxymask 4 08/30/24 14:18 151/68 H 97 Oxymask 6 08/30/24 10:55 186/80 H 96 Room Air Coding Level of Care Code 73099 IN/OBS CONSULT LVL 3,45M Diagnoses Carotid arterial disease I77.9 Carotid artery disease type: unspecified Laterality: right (1) Carotid arterial disease Carotid artery disease type: unspecified Laterality: right Qualified Code(s): I77.9 - Disorder of arteries and arterioles, unspecified
[2024-08-30] MEDS: LOSARTAN POTASSIUM 50 MG TAB PO SCH (21:57)
[2024-08-31] MEDS: LEVOTHYROXINE SODIUM 137 MCG TABLET PO SCH (05:29)
[2024-08-31 08:00] VITALS: O2SAT 95
--- NOTE | 2024-08-31 09:10 | Critical Care Progress Note ---
Date of Service August 31, 2024 Assessment & Plan (1) Carotid arterial disease: Plan: Postop day 1 status post right TCAR. Continue expectant management with BP control as per vascular surgery parameters, pain control per vascular surgery parameters and antiplatelet regimen/statin regimen for vascular surgery parameters. Radial arterial line in place. Diet ordered per vascular surgeon. Continue frequent neurovascular checks and frequent checks of the patient's airway. ICU team services are available should the need arise. Thank you for the consult and will continue to monitor while the patient remains under ICU status. Plan Patient separately seen and examined. She is doing quite well and up out of bed. She is going to be discharged home by the vascular surgical team. She denies any overt complaints at this present time. Heart rate is in a regular rhythm. Lung sounds are clear. She denies any dizziness. No focal neurological deficits. Admission and Anticipated Discharge Date Admission Date: August 30, 2024 Subjective Patient seen and evaluated at bedside. She had an uneventful night. No complaints of pain. She has been out of bed to chair already and had her breakfast. She is feeling well and hopeful for discharge. Review of Systems Review of Systems: As per subjective Physical Exam Physical Exam: Constitutional: Patient appears to be of their stated age. Patient is in no apparent distress. Patient is well-developed. Eyes: Pupils are equal round and reactive to light. Conjunctivae are normal. Anicteric sclera. Ears nose, mouth and throat: Mallampati class 2. Normal posterior oropharynx. Uvula is midline. Neck: Right TCAR incision site appears clean dry and intact. Mild bruising noted. Respiratory: Clear to auscultation bilaterally. No use of accessory muscles. No significant clubbing noted. Cardiovascular: Regular rate and rhythm. No murmurs. No edema. Gastrointestinal: Normal bowel sounds, soft, nontender and nondistended. No hepatosplenomegaly noted. Musculoskeletal: No cyanosis. Patient is able to move all extremities. Str ength is 5 out of 5 in the upper and lower extremities. Skin: No rashes, warm dry and intact. Left femoral puncture site appears clean dry and intact. Neurologic: No obvious focal neurological deficits seen. Psychiatric: Alert and oriented x3 with a euthymic affect. Results & Data Results & Data Vital Signs (Past 12 Hours) Vital Signs Temp Pulse Pulse Resp BP BP Pulse Ox 08/31/24 07:53 47 L 08/31/24 07:00 102/50 L 08/31/24 06:48 49 L 18 95 08/31/24 06:00 56 L 19 92 08/31/24 06:00 110/50 L 08/31/24 05:00 108/45 L 08/31/24 05:00 108/45 L 08/31/24 04:00 108/50 L 08/31/24 02:00 49 L 20 114/47 L 92 08/31/24 01:00 49 L 19 111/52 L 92 08/31/24 00:00 53 L 20 106/49 L 93 08/31/24 00:00 55 L 08/30/24 23:00 59 L 22 109/54 L 94 08/30/24 22:00 36.9 C 58 L 22 121/54 L 94 O2 Del Method 08/31/24 07:53 08/31/24 07:00 08/31/24 06:48 Room Air 08/31/24 06:00 08/31/24 06:00 08/31/24 05:00 08/31/24 05:00 08/31/24 04:00 08/31/24 02:00 Room Air 08/31/24 01:00 Room Air 08/31/24 00:00 Room Air 08/31/24 00:00 08/30/24 23:00 Room Air 08/30/24 22:00 Room Air Coding Level of Care Code 05056 SUB INP/OBS CARE 07/16MIN Diagnoses Carotid arterial disease I77.9 Carotid artery disease type: unspecified Laterality: right (1) Carotid arterial disease Carotid artery disease type: unspecified Laterality: right Qualified Code(s): I77.9 - Disorder of arteries and arterioles, unspecified
[2024-08-31] MEDS: hydroCHLOROthiazide 25 MG TAB PO SCH (09:24)
[2024-08-31] MEDS: CLOPIDOGREL BISULFATE 75 MG TAB PO SCH (09:24)
[2024-08-31] MEDS: CHOLECALCIFEROL 125 MCG (5,000 UNITS) TAB PO SCH (09:25)
[2024-08-31] MEDS: ASPIRIN 81 MG ECTAB PO SCH (09:26)
[2024-08-31] MEDS: CYANOCOBALAMIN (B-12) 500 MCG TABLET PO SCH (09:26)
[2024-08-31] MEDS: FOLIC ACID 1 MG TAB PO SCH (09:26)
[2024-08-31] MEDS: ATORVASTATIN 40 MG TAB PO SCH (09:26)
[2024-08-31] MEDS ORDERED: COUGH DROP (SUGAR FREE) LOZ 24 LOZ/1 BOX BUCCAL PRN (10:03)
[2024-08-31] MEDS: COUGH DROP (SUGAR FREE) LOZ 24 LOZ/1 BOX BUCCAL ONE (11:14)
[2024-08-31 13:28] VITALS: RESP 23
[2024-08-31 13:29] VITALS: TEMP 97.9
[2024-08-31 13:35] VITALS: BP 144/64; PULSE 49
--- NOTE | 2024-08-31 14:42 | Surgery Progress Note ---
Date of Service August 31, 2024 Assessment & Plan (1) S/P vascular surgery: Plan: Pt POD # 1 after uncomplicated R TCAR. Doing well post op. OK for d/c home today. Admission and Anticipated Discharge Date Admission Date: August 30, 2024 Subjective 74 yo f POD #1 after uncomplicated R TCAR, seen in f/u today. Pt admits some surgical site pain, but not terrible. Denies any new cerebrovascular complaints. Review of Systems Review of Systems: All systems reviewed & are unremarkable except as noted in HPI & below Physical Exam Constitutional: WD/WN, vitals as above + obese, healthy appearing and cooperative; not in distress Respiratory: normal respiratory effort, lungs clear to auscultation Auscultation: + diminished lung sounds Cardiovascular: Rate/Rhythm: regular rate and regular rhythm Vessels: posterior tibial pulses present and dorsalis pedis pulses present; + abnormal peripheral pulses Extremities: normal capillary refill Gastrointestinal (Abdomen): Inspection/Auscultation: abdomen normal to inspection and normal bowel sounds Percussion/Palpation: abdomen soft; abdomen nontender Musculoskeletal: no cyanosis or clubbing, extremities motor strength 5/5 Skin: no rashes, warm and dry R supraclavicular incision C/D/I, mild ecchymosis, tenderness. No erythema or draiange. Neurologic: moves all extremities and awake; no focal motor deficits and not confused Psychiatric: A+Ox3, euthymic affect Results & Data Vital Signs (Past 12 Hours) Vital Signs Temp Pulse Pulse Resp BP BP BP 08/31/24 13:30 36.6 C 49 L 23 114/47 L 144/64 H 08/31/24 13:00 105/47 L 08/31/24 13:00 105/47 L 08/31/24 13:00 105/47 L 08/31/24 13:00 105/47 L 08/31/24 13:00 105/47 L 08/31/24 13:00 105/47 L 08/31/24 13:00 105/47 L 08/31/24 13:00 105/47 L 08/31/24 13:00 58 L 23 08/31/24 12:00 101/54 L 08/31/24 12:00 101/54 L 08/31/24 12:00 101/54 L 08/31/24 12:00 101/54 L 08/31/24 12:00 101/54 L 08/31/24 12:00 101/54 L 08/31/24 12:00 101/54 L 08/31/24 12:00 101/54 L 08/31/24 12:00 101/54 L 08/31/24 12:00 101/54 L 08/31/24 12:00 101/54 L 08/31/24 12:00 101/54 L 08/31/24 12:00 101/54 L 08/31/24 12:00 101/54 L 08/31/24 12:00 101/54 L 08/31/24 12:00 101/54 L 08/31/24 12:00 101/54 L 08/31/24 12:00 101/54 L 08/31/24 12:00 101/54 L 08/31/24 12:00 101/54 L 08/31/24 12:00 101/54 L 08/31/24 12:00 101/54 L 08/31/24 12:00 101/54 L 08/31/24 12:00 101/54 L 08/31/24 12:00 101/54 L 08/31/24 12:00 101/54 L 08/31/24 12:00 50 L 24 08/31/24 12:00 36.6 C 08/31/24 11:00 102/45 L 08/31/24 11:00 102/45 L 08/31/24 11:00 102/45 L 08/31/24 11:00 102/45 L 08/31/24 11:00 102/45 L 08/31/24 11:00 102/45 L 08/31/24 11:00 102/45 L 08/31/24 11:00 102/45 L 08/31/24 11:00 102/45 L 08/31/24 11:00 102/45 L 08/31/24 11:00 102/45 L 08/31/24 11:00 102/45 L 08/31/24 11:00 102/45 L 08/31/24 10:54 51 L 16 08/31/24 09:27 49 L 17 08/31/24 09:00 105/47 L 08/31/24 09:00 105/47 L 08/31/24 09:00 105/47 L 08/31/24 09:00 105/47 L 08/31/24 09:00 105/47 L 08/31/24 09:00 105/47 L 08/31/24 09:00 105/47 L 08/31/24 09:00 105/47 L 08/31/24 09:00 105/47 L 08/31/24 09:00 105/47 L 08/31/24 09:00 105/47 L 08/31/24 09:00 105/47 L 08/31/24 09:00 105/47 L 08/31/24 09:00 105/47 L 08/31/24 09:00 105/47 L 08/31/24 09:00 105/47 L 08/31/24 09:00 105/47 L 08/31/24 09:00 105/47 L 08/31/24 09:00 105/47 L 08/31/24 09:00 105/47 L 08/31/24 09:00 105/47 L 08/31/24 09:00 105/47 L 08/31/24 08:03 57 L 18 08/31/24 08:02 96/63 L 08/31/24 08:02 96/63 L 08/31/24 08:02 96/63 L 08/31/24 08:02 96/63 L 08/31/24 08:02 96/63 L 08/31/24 08:02 96/63 L 08/31/24 08:02 96/63 L 08/31/24 08:02 96/63 L 08/31/24 08:02 96/63 L 08/31/24 08:02 96/63 L 08/31/24 08:02 96/63 L 08/31/24 08:02 96/63 L 08/31/24 08:02 96/63 L 08/31/24 08:02 96/63 L 08/31/24 08:02 96/63 L 08/31/24 08:02 96/63 L 08/31/24 08:02 96/63 L 08/31/24 08:02 96/63 L 08/31/24 08:02 96/63 L 08/31/24 08:02 96/63 L 08/31/24 08:00 36.6 C 08/31/24 08:00 47 L 03/12/25 07:53 47 L 08/31/24 07:00 102/50 L 08/31/24 06:48 49 L 18 08/31/24 06:00 56 L 19 08/31/24 06:00 110/50 L 08/31/24 05:00 108/45 L 08/31/24 05:00 108/45 L 08/31/24 04:00 108/50 L Pulse Ox O2 Del Method 08/31/24 13:30 95 08/31/24 13:00 08/31/24 13:00 08/31/24 13:00 08/31/24 13:00 08/31/24 13:00 08/31/24 13:00 08/31/24 13:00 08/31/24 13:00 08/31/24 13:00 08/31/24 12:00 08/31/24 12:00 08/31/24 12:00 08/31/24 12:00 08/31/24 12:00 08/31/24 12:00 08/31/24 12:00 08/31/24 12:00 08/31/24 12:00 08/31/24 12:00 08/31/24 12:00 08/31/24 12:00 08/31/24 12:00 08/31/24 12:00 08/31/24 12:00 08/31/24 12:00 08/31/24 12:00 08/31/24 12:00 08/31/24 12:00 08/31/24 12:00 08/31/24 12:00 08/31/24 12:00 08/31/24 12:00 08/31/24 12:00 08/31/24 12:00 08/31/24 12:00 08/31/24 12:00 08/31/24 12:00 08/31/24 11:00 08/31/24 11:00 08/31/24 11:00 08/31/24 11:00 08/31/24 11:00 08/31/24 11:00 08/31/24 11:00 08/31/24 11:00 08/31/24 11:00 08/31/24 11:00 08/31/24 11:00 08/31/24 11:00 08/31/24 11:00 08/31/24 10:54 08/31/24 09:27 95 08/31/24 09:00 08/31/24 09:00 08/31/24 09:00 08/31/24 09:00 08/31/24 09:00 08/31/24 09:00 08/31/24 09:00 08/31/24 09:00 08/31/24 09:00 08/31/24 09:00 08/31/24 09:00 08/31/24 09:00 08/31/24 09:00 08/31/24 09:00 08/31/24 09:00 08/31/24 09:00 08/31/24 09:00 08/31/24 09:00 08/31/24 09:00 08/31/24 09:00 08/31/24 09:00 08/31/24 09:00 08/31/24 08:03 93 08/31/24 08:02 08/31/24 08:02 08/31/24 08:02 08/31/24 08:02 08/31/24 08:02 08/31/24 08:02 08/31/24 08:02 08/31/24 08:02 08/31/24 08:02 08/31/24 08:02 08/31/24 08:02 08/31/24 08:02 08/31/24 08:02 08/31/24 08:02 08/31/24 08:02 08/31/24 08:02 08/31/24 08:02 08/31/24 08:02 08/31/24 08:02 08/31/24 08:02 08/31/24 08:00 08/31/24 08:00 08/31/24 07:53 08/31/24 07:00 08/31/24 06:48 95 Room Air 08/31/24 06:00 92 08/31/24 06:00 08/31/24 05:00 08/31/24 05:00 08/31/24 04:00
[2024-09-01] MEDS ORDERED: CHOLECALCIFEROL 125 MCG (5,000 UNITS) TAB PO SCH (09:00)
== END 2024-08-31 15:41 | disposition home or self-care (01) | DRG 36 ==
LOC: ASU 10:16 → 1E 11:42
PROC: EV.TCAR (2024-08-30 12:30)